=== PATIENT | male | born 1940 | race Caucasian/White ===

== ENCOUNTER 2018-07-09 23:14 | Inpatient (IN) | payer MEDICARE, OTHER ==
[~2018-07-09] VITALS: Ht 182.9 cm; Wt 64.9 kg
[2018-07-09] MEDS ORDERED: LEVO50TA8 PO (23:35)
[2018-07-09] MEDS ORDERED: POTA-82 PO (23:35)
[2018-07-09] MEDS ORDERED: piperacillin/tazo 3.375gm/50ml 50 ML IV ONE (23:45)
--- NOTE | 2018-07-09 23:57 | NUR ---
CALLED [facility] AND HE WAS NOT ABLE TO RETIME ZOSYN, SO HAD TO CANCEL IT AND REORDER IT.
--- NOTE | 2018-07-10 00:02 | NUR ---
NOTICED PT O2 SAT AT 90%, PLACED NC AT 2 L.
[2018-07-10 00:55] LABS: BASOPHILS % (AUTO) 0.3 % (0-1); EOSINOPHILS % (AUTO) 0.1 % (0-6); HEMATOCRIT 41.4 % (42.0-52.0); HEMOGLOBIN 12.9 g/dl (14.0-17.9); LYMPHOCYTES # (AUTO) 0.7 X10'3 (1.1-4.8); LYMPHOCYTES % (AUTO) 6.4 % (21-51); MEAN CORPUSCULAR HEMOGLOBIN 28.7 PG (27.0-31.0); MEAN CORPUSCULAR HGB CONC 31.1 g/dL (33.0-36.5); MEAN CORPUSCULAR VOLUME 92.3 FL (78-98); MEAN PLATELET VOLUME 9.5 FL (7.4-10.4); MONOCYTES # (AUTO) 0.4 X10'3 (0-0.9); MONOCYTES % (AUTO) 3.7 % (2-12); NEUTROPHILS # (AUTO) 10.3 X10'3 (1.8-7.7); NEUTROPHILS % (AUTO) 89.5 % (42-75); PLATELET COUNT 307 X10'3 (140-440); RED BLOOD COUNT 4.48 X10'6 (4.70-6.10); RED CELL DISTRIBUTION WIDTH 14.8 % (11.5-14.5); WHITE BLOOD COUNT 11.5 X10'3 (4.5-11.0)
[2018-07-10 01:12] LABS: ALANINE AMINOTRANSFERASE 14 U/L (12-78); ALBUMIN 1.6 G/DL (3.4-5.0); ALBUMIN/GLOBULIN RATIO 0.3 (1.1-1.5); ALKALINE PHOSPHATASE 72 IU/L (46-116); ANION GAP 10 (8-16); ASPARTATE AMINO TRANSFERASE 17 U/L (10-37); BILIRUBIN,TOTAL 0.3 MG/DL (0.1-1.0); BLOOD UREA NITROGEN 42 MG/DL (7-18); BUN/CREATININE RATIO 49.4 (5.4-32.0); CALCIUM 8.8 MG/DL (8.5-10.1); CHLORIDE 107 MMOL/L (99-107); CREATININE 0.85 MG/DL (0.60-1.10); GLUCOSE 63 MG/DL (70-104); MAGNESIUM 2.2 MG/DL (1.5-2.4); POTASSIUM 4.2 MMOL/L (3.5-5.1); SODIUM 146 MMOL/L (135-145); TOTAL CARBON DIOXIDE 29.4 MMOL/L (24-32); TOTAL PROTEIN 7.5 G/DL (6.4-8.2); TROPONIN I < 0.04 NG/ML (0.0-0.05); eGFR 87 ML/MIN
[2018-07-10] MEDS ORDERED: clindamycin 600mg/D5W 50ml 50 ML IV ONE (01:35)
[2018-07-10] MEDS ORDERED: piperacillin/tazo 3.375gm/50ml 50 ML IV SCH (01:40)
[2018-07-10] MEDS ORDERED: acetaminophen 325mg tablet PO PRN (02:10)
[2018-07-10] MEDS ORDERED: magnesium hydroxide 30ml (MOM) UD suspension PO PRN (02:10)
[2018-07-10] MEDS ORDERED: ondansetron/PF 4mg/2ml inj IV PRN (02:10)
[2018-07-10] MEDS ORDERED: mag hydrox/Alum hydrox/simeth 30ml oral suspension PO PRN (02:10)
[2018-07-10] MEDS: dextrose 5%-1/2 normal saline 1,000 ML IV SCH ×2 (02:29→12:59)
[2018-07-10 02:40] LABS: CLARITY,URINE CLEAR (Clear); COLOR,URINE YELLOW (Yellow); GLUCOSE, URINE NEGATIVE (Neg); KETONES,URINE NEGATIVE (Neg); LEUKOCYTE ESTERASE ,URINE NEGATIVE (Neg); NITRITES, URINE NEGATIVE (Neg); OCCULT BLOOD,URINE TRACE-LYSED (Neg); PROTEIN,URINE NEGATIVE (Neg); UA COLLECTION TYPE VOIDED; UROBILINOGEN,URINE 0.2 E.U/dL (0.2-1.0)
[2018-07-10 02:46] LABS: BACTERIA,URINE FEW /HPF (Neg); RBC,URINE 0-2 /HPF (0-2); SQUAMOUS EPITHELIAL CELL,UR FEW /LPF (FEW); WBC,URINE NONE SEEN /HPF (0-4)
[2018-07-10 03:45] VITALS: BP 121/55
--- NOTE | 2018-07-10 06:25 | NUR ---
Patient in room [facility]. I have received report from Isabella Lee RN and had the opportunity to ask questions and assume patient care.
--- NOTE | 2018-07-10 06:33 | NUR ---
Problems reprioritized. Patient report given, questions answered & plan of care reviewed with JENN Galindo. Addendum: 07/10/18 at 0633 by Heather Hedrick RN Amended: Links added.
[2018-07-10] MEDS: levoTHYROXINE 25mcg tablet PO SCH (07:54)
[2018-07-10 08:00] VITALS: BP 114/43
[2018-07-10] MEDS ORDERED: clindamycin 300mg/D5W 50mL 50 ML IV SCH (08:00)
[2018-07-10] MEDS ORDERED: magnesium 4gm in 100ml NS 100 ML IV PRN (09:20)
[2018-07-10] MEDS ORDERED: magnesium Cl slow-release 64mg tablet PO PRN (09:20)
[2018-07-10] MEDS ORDERED: potassium Cl 20 mEq SR tablet PO PRN ×2 (09:20)
[2018-07-10] MEDS ORDERED: potassium Cl 40MEQ/NS 500ml 500 ML IV PRN ×2 (09:20)
--- NOTE | 2018-07-10 10:43 | NUR ---
Dr. Matos in with patient. Patient's daughter Neela is in the room as well.
[2018-07-10] MEDS: vancomycin/NS 1 GM ADD-VANTAGE 250 ML X 1 DOSE IV SCH (10:55)
[2018-07-10 11:00] VITALS: BP 95/44
[2018-07-10] MEDS: piperacillin/tazo 3.375gm/50ml 50 ML IV SCH ×2 (12:54→17:13)
--- NOTE | 2018-07-10 15:32 | NUR ---
Malnutrition consult: Pt seen at bedside. Pt reports UBW of 120# with current documented wt of 97# taken in the ER this visit per pt. This is 19% wt loss in an unknown time frame. Pt very cachectic with visible fat and muscle wasting. Pt currently meets criteria for severe malnutrition, MD notified. Pt currently NPO. Pt states he is hungry and that he has some difficulty swallowing. Pt is agreeable to BSS with PERSONNEL DIRECTOR to determine appropriate texture modification with diet advancement. RD did not order ST eval at this time d/t patient's current NPO status, recommend ordering once diet advancement is medically indicated. Pt agreeable to strawberry or chocolate ONS once diet is advanced. Pt denies any food allergies. RD contact information provided. Will continue to follow. Recommendations: 1) BSS with PERSONNEL DIRECTOR for diet advancement to regular as medically indicated 2) ONS if pt passes BSS 3) Wt per rx Addendum: 07/10/18 at [address] Amended: Links added.
--- NOTE | 2018-07-10 18:08 | NUR ---
Patient in room [facility]. I have received report from JENN Galindo and had the opportunity to ask questions and assume patient care. Addendum: 07/10/18 at 1809 by Heather Hedrick RN Amended: Links added.
[2018-07-10 20:00] VITALS: BP 95/55
[2018-07-11] VITALS (14 sets, daily range): BP systolic 84–115; BP diastolic 37–56
[2018-07-11] MEDS: dextrose 5%-1/2 normal saline 1,000 ML IV SCH ×3 (00:51→18:10)
[2018-07-11] MEDS: piperacillin/tazo 3.375gm/50ml 50 ML IV SCH ×3 (03:08→17:33)
[2018-07-11 05:35] LABS: ALANINE AMINOTRANSFERASE 11 U/L (12-78); ALBUMIN 1.5 G/DL (3.4-5.0); ALBUMIN/GLOBULIN RATIO 0.3 (1.1-1.5); ALKALINE PHOSPHATASE 64 IU/L (46-116); ANION GAP 7 (8-16); ASPARTATE AMINO TRANSFERASE 16 U/L (10-37); BILIRUBIN,TOTAL 0.2 MG/DL (0.1-1.0); BLOOD UREA NITROGEN 20 MG/DL (7-18); BUN/CREATININE RATIO 23.8 (5.4-32.0); CALCIUM 8.6 MG/DL (8.5-10.1); CHLORIDE 108 MMOL/L (99-107); CREATININE 0.84 MG/DL (0.60-1.10); GLUCOSE 92 MG/DL (70-104); MAGNESIUM 1.8 MG/DL (1.5-2.4); POTASSIUM 3.5 MMOL/L (3.5-5.1); SODIUM 146 MMOL/L (135-145); TOTAL CARBON DIOXIDE 31.2 MMOL/L (24-32); TOTAL PROTEIN 6.8 G/DL (6.4-8.2); eGFR 88 ML/MIN
[2018-07-11 06:24] LABS: MEAN PLATELET VOLUME 9.5 FL (7.4-10.4); PLATELET COUNT 276 X10'3 (140-440)
[2018-07-11 06:25] LABS: HEMATOCRIT 38.1 % (42.0-52.0); HEMOGLOBIN 12.6 g/dl (14.0-17.9); MEAN CORPUSCULAR HEMOGLOBIN 29.9 PG (27.0-31.0); MEAN CORPUSCULAR VOLUME 90.5 FL (78-98); RED BLOOD COUNT 4.21 X10'6 (4.70-6.10); RED CELL DISTRIBUTION WIDTH 14.6 % (11.5-14.5); WHITE BLOOD COUNT 10.4 X10'3 (4.5-11.0)
--- NOTE | 2018-07-11 06:35 | NUR ---
Problems reprioritized. Patient report given, questions answered & plan of care reviewed with JENN Nunez.
--- NOTE | 2018-07-11 06:36 | NUR ---
Patient in room [facility]. I have received report from Isabella BARAJAS and had the opportunity to ask questions and assume patient care.
[2018-07-11 07:16] LABS: TOTAL CELLS COUNTED 100
[2018-07-11 07:17] LABS: ANISOCYTOSIS 2+; PLATELET ESTIMATE NORMAL
[2018-07-11] MEDS: levoTHYROXINE 25mcg tablet PO SCH (07:43)
[2018-07-11] MEDS: vancomycin/NS 1 GM ADD-VANTAGE 250 ML X 1 DOSE IV SCH (09:18)
[2018-07-11] MEDS ORDERED: LIDOcaine 1%/PF 5ML 10 MG/ML VIAL ONE (12:22)
[2018-07-11 14:28] LABS: GLUCOSE,BODY FLUID 7 MG/DL; TOTAL PROTEIN,BODY FLUID 5.2 G/DL
[2018-07-11 14:31] LABS: BFSOURCE RIGHT PLEURAL FLD
[2018-07-11 14:54] LABS: LDH,BODY FLUID 16576 U/L
--- NOTE | 2018-07-11 15:36 | NUR ---
patient was seen by DR Forrest, DR Horn, and DR Walter. Chest tube ordered and placed by DR Walter. Draining purrulent viscous drainage . patient appears more relieved as time progresses. 400mls drained at this time. Daughter at bedside.
[2018-07-11 16:02] LABS: LYMPHOCYTES,BODY FLUID 43 %; MONOCYTES,BODY FLUID 35 %; NEUTROPHILS,BODY FLUID 22 %
[2018-07-11 16:26] LABS: BFAPPEAR TURBID
[2018-07-11 16:27] LABS: BFVOLUME 60 ML
[2018-07-11 16:28] LABS: BF RBC COUNT 150 /CU MM; BF WBC COUNT 6100 /CU MM (0-1000); BFCOLOR GREEN
--- NOTE | 2018-07-11 18:34 | NUR ---
Problems reprioritized. Patient report given, questions answered & plan of care reviewed with Abril BARAJAS.
--- NOTE | 2018-07-11 18:44 | NUR ---
Patient in room [facility]. I have received report from Mayra BARAJAS and had the opportunity to ask questions and assume patient care with Genevieve BARAJAS and María BARAJAS.
--- NOTE | 2018-07-11 18:45 | NUR ---
Patient in room [facility]. I have received report from Mayra BARAJAS and had the opportunity to ask questions and assume patient care.
[2018-07-11] MEDS: lactobacillus rhamnosus 10,000 MMU CELLS/CAPSULE PO SCH (19:37)
[2018-07-11] MEDS ORDERED: ipratropium/albuterol 3ml nebule NEB PRN (21:20)
[2018-07-12] VITALS: BP 90/47
[2018-07-12] MEDS: dextrose 5%-1/2 normal saline 1,000 ML IV SCH ×2 (00:11→14:10)
[2018-07-12] MEDS: piperacillin/tazo 3.375gm/50ml 50 ML IV SCH ×3 (02:07→17:39)
[2018-07-12 06:14] LABS: BASOPHILS % (AUTO) 0.3 % (0-1); EOSINOPHILS # (AUTO) 0.1 X10'3 (0-0.9); EOSINOPHILS % (AUTO) 1.7 % (0-6); LYMPHOCYTES # (AUTO) 0.8 X10'3 (1.1-4.8); LYMPHOCYTES % (AUTO) 12.8 % (21-51); MEAN CORPUSCULAR HEMOGLOBIN 29.5 PG (27.0-31.0); MEAN CORPUSCULAR HGB CONC 32.3 g/dL (33.0-36.5); MEAN CORPUSCULAR VOLUME 91.1 FL (78-98); MEAN PLATELET VOLUME 9.4 FL (7.4-10.4); MONOCYTES # (AUTO) 0.4 X10'3 (0-0.9); MONOCYTES % (AUTO) 5.9 % (2-12); NEUTROPHILS # (AUTO) 4.9 X10'3 (1.8-7.7); NEUTROPHILS % (AUTO) 79.3 % (42-75); PLATELET COUNT 245 X10'3 (140-440); RED BLOOD COUNT 4.06 X10'6 (4.70-6.10); RED CELL DISTRIBUTION WIDTH 14.5 % (11.5-14.5); WHITE BLOOD COUNT 6.2 X10'3 (4.5-11.0)
[2018-07-12 06:16] LABS: ALANINE AMINOTRANSFERASE 11 U/L (12-78); ALBUMIN 1.4 G/DL (3.4-5.0); ALBUMIN/GLOBULIN RATIO 0.3 (1.1-1.5); ALKALINE PHOSPHATASE 59 IU/L (46-116); ANION GAP 5 (8-16); ASPARTATE AMINO TRANSFERASE 17 U/L (10-37); BILIRUBIN,TOTAL 0.2 MG/DL (0.1-1.0); BLOOD UREA NITROGEN 13 MG/DL (7-18); BUN/CREATININE RATIO 18.1 (5.4-32.0); CALCIUM 8.4 MG/DL (8.5-10.1); CHLORIDE 107 MMOL/L (99-107); CREATININE 0.72 MG/DL (0.60-1.10); GLUCOSE 87 MG/DL (70-104); MAGNESIUM 1.7 MG/DL (1.5-2.4); POTASSIUM 3.2 MMOL/L (3.5-5.1); SODIUM 144 MMOL/L (135-145); TOTAL CARBON DIOXIDE 32.2 MMOL/L (24-32); TOTAL PROTEIN 6.5 G/DL (6.4-8.2); eGFR > 90 ML/MIN
--- NOTE | 2018-07-12 06:27 | NUR ---
Gave report to Mayra BARAJAS pt is resting on 2L of O2 via NC in no apparent distress,
--- NOTE | 2018-07-12 06:28 | NUR ---
Problems reprioritized. Patient report given to Mayra BARAJAS, questions answered & plan of care reviewed with Genevieve BARAJAS and María BARAJAS.
--- NOTE | 2018-07-12 06:54 | NUR ---
Patient in room [facility]. I have received report from philomena seth and had the opportunity to ask questions and assume patient care.
[2018-07-12 07:00] VITALS: BP 97/47
[2018-07-12] MEDS: lactobacillus rhamnosus 10,000 MMU CELLS/CAPSULE PO SCH ×2 (08:06→19:29)
[2018-07-12] MEDS: levoTHYROXINE 25mcg tablet PO SCH (08:07)
[2018-07-12] MEDS ORDERED: alteplase 1 mg/ml 5ml syringe ICATH ONE (09:50)
[2018-07-12] MEDS ORDERED: vancomycin/NS 1 GM ADD-VANTAGE 250 ML X 1 DOSE IV SCH (10:00)
[2018-07-12 12:00] VITALS: BP 129/69
--- NOTE | 2018-07-12 12:30 | NUR ---
wrong B/P entered. B/P 89/45 Addendum: 07/12/18 at 1231 by Mayra Hopper RN Amended: Links added.
--- NOTE | 2018-07-12 15:13 | NUR ---
patient seen by Dr Walter. TPA injected into tube and clamped for 3 hrs. Unclamped at 1330hrs and draining still purrelent drainage.
--- NOTE | 2018-07-12 18:01 | NUR ---
Problems reprioritized. Patient report given, questions answered & plan of care reviewed with Isabella BARAJAS.
[2018-07-12 20:00] VITALS: BP 92/45
[2018-07-13] VITALS: BP 106/50
[2018-07-13] MEDS: dextrose 5%-1/2 normal saline 1,000 ML IV SCH ×3 (00:10→14:51)
[2018-07-13] MEDS: piperacillin/tazo 3.375gm/50ml 50 ML IV SCH ×3 (01:37→19:51)
--- NOTE | 2018-07-13 06:00 | NUR ---
Patient in room [facility]. I have received report from JENN Mason and had the opportunity to ask questions and assume patient care.
--- NOTE | 2018-07-13 06:37 | NUR ---
Problems reprioritized. Patient report given, questions answered & plan of care reviewed with JENN Renteria.
--- NOTE | 2018-07-13 06:57 | NUR ---
Patient in room [facility]. I have received report from Myra and had the opportunity to ask questions and assume patient care.
[2018-07-13 07:00] VITALS: BP 120/59
[2018-07-13] MEDS: levoTHYROXINE 25mcg tablet PO SCH (07:26)
[2018-07-13] MEDS: lactobacillus rhamnosus 10,000 MMU CELLS/CAPSULE PO SCH ×2 (07:26→19:53)
[2018-07-13 08:50] VITALS: BP 108/53
[2018-07-13] MEDS ORDERED: VANCOMYCIN LEVEL IV ONE (09:30)
[2018-07-13 10:32] LABS: BASOPHILS % (AUTO) 0.6 % (0-1); EOSINOPHILS # (AUTO) 0.1 X10'3 (0-0.9); EOSINOPHILS % (AUTO) 1.3 % (0-6); HEMATOCRIT 37.6 % (42.0-52.0); HEMOGLOBIN 11.9 g/dl (14.0-17.9); LYMPHOCYTES # (AUTO) 0.7 X10'3 (1.1-4.8); LYMPHOCYTES % (AUTO) 10.5 % (21-51); MEAN CORPUSCULAR HGB CONC 31.7 g/dL (33.0-36.5); MEAN CORPUSCULAR VOLUME 91.2 FL (78-98); MEAN PLATELET VOLUME 9.1 FL (7.4-10.4); MONOCYTES # (AUTO) 0.4 X10'3 (0-0.9); MONOCYTES % (AUTO) 6.9 % (2-12); NEUTROPHILS # (AUTO) 5.3 X10'3 (1.8-7.7); NEUTROPHILS % (AUTO) 80.7 % (42-75); PLATELET COUNT 231 X10'3 (140-440); RED BLOOD COUNT 4.12 X10'6 (4.70-6.10); RED CELL DISTRIBUTION WIDTH 14.8 % (11.5-14.5); WHITE BLOOD COUNT 6.5 X10'3 (4.5-11.0)
[2018-07-13 10:35] LABS: ALANINE AMINOTRANSFERASE 8 U/L (12-78); ALBUMIN 1.3 G/DL (3.4-5.0); ALBUMIN/GLOBULIN RATIO 0.3 (1.1-1.5); ALKALINE PHOSPHATASE 54 IU/L (46-116); ANION GAP 4 (8-16); ASPARTATE AMINO TRANSFERASE 16 U/L (10-37); BILIRUBIN,TOTAL 0.2 MG/DL (0.1-1.0); BLOOD UREA NITROGEN 9 MG/DL (7-18); BUN/CREATININE RATIO 11.8 (5.4-32.0); CALCIUM 7.7 MG/DL (8.5-10.1); CHLORIDE 104 MMOL/L (99-107); CREATININE 0.76 MG/DL (0.60-1.10); GLUCOSE 81 MG/DL (70-104); MAGNESIUM 1.4 MG/DL (1.5-2.4); POTASSIUM 3.1 MMOL/L (3.5-5.1); SODIUM 138 MMOL/L (135-145); TOTAL CARBON DIOXIDE 29.9 MMOL/L (24-32); TOTAL PROTEIN 6.3 G/DL (6.4-8.2); eGFR > 90 ML/MIN
--- NOTE | 2018-07-13 10:47 | NUR ---
Student documentation: I have reviewed and agree with all interventions, assessments performed and documented by [employer], school of nursing director.
[2018-07-13 10:50] VITALS: BP 111/54
--- NOTE | 2018-07-13 10:57 | NUR ---
Student Medication Administration: For this medication-pass time frame, all medication were reviewed, dispensed, administered and documented per hospital policy by [employer] nursing professor.
--- NOTE | 2018-07-13 11:02 | NUR ---
Attempted to take a temperature, patient was asleep, family wanted him to sleep and not be bothered.
[2018-07-13 11:08] VITALS: BP 111/54
--- NOTE | 2018-07-13 11:23 | NUR ---
Patient report given, questions answered & plan of care reviewed with Myra.
[2018-07-13] MEDS ORDERED: alteplase 1 mg/ml 5ml syringe ICATH ONE (11:50)
--- NOTE | 2018-07-13 11:53 | NUR ---
reassessment: Pt PO 25% avg mechanical soft meals. No BSS yet and pt would like since now PO; DOCUMENT IMPROVEMENT SPECIALIST consult ordered as well as Chocolate Glucerna TIDWM given pt agreeable on prior RD visit and currently out of stock on aaliyah lam; and dietary notified. RD [employer] for routine bowel care given LBM 07/08 w/ pt having nausea/constipation and no bowel care ordered. Will monitor for ONS acceptance and additional texture modification needs per DOCUMENT IMPROVEMENT SPECIALIST recs; currently tolerating liquids even though low PO. New labs pending today. Will continue to monitor. Recommendations: 1) BSS with DOCUMENT IMPROVEMENT SPECIALIST for diet advancement to regular as medically indicated 2) chocolate Glucerna TIDWM; change per DOCUMENT IMPROVEMENT SPECIALIST recs 3) Weekly wts Addendum: 07/13/18 at [address] Amended: Links added.
--- NOTE | 2018-07-13 12:18 | NUR ---
Patient in room [facility]. I have received report from JENN Renteria and had the opportunity to ask questions and assume patient care.
[2018-07-13] MEDS ORDERED: magnesium 4gm in 100ml NS 100 ML IV PRN (12:25)
[2018-07-13] MEDS ORDERED: potassium Cl 20 mEq SR tablet PO PRN (12:25)
[2018-07-13] MEDS ORDERED: magnesium Cl slow-release 64mg tablet PO PRN (12:25)
[2018-07-13] MEDS ORDERED: potassium Cl 40MEQ/NS 500ml 500 ML IV PRN (12:25)
[2018-07-13] MEDS: potassium Cl 20 mEq SR tablet PO PRN (14:41)
--- NOTE | 2018-07-13 18:58 | NUR ---
Problems reprioritized. Patient report given, questions answered & plan of care reviewed with Bonnie Nicole RN.
[2018-07-13 20:00] VITALS: BP 101/52
[2018-07-13] MEDS: potassium Cl 40MEQ/NS 500ml 500 ML IV PRN (20:24)
[2018-07-14] VITALS: BP 101/48
[2018-07-14] MEDS: piperacillin/tazo 3.375gm/50ml 50 ML IV SCH ×3 (02:23→19:19)
[2018-07-14 05:01] LABS: ALANINE AMINOTRANSFERASE 11 U/L (12-78); ALBUMIN 1.5 G/DL (3.4-5.0); ALBUMIN/GLOBULIN RATIO 0.3 (1.1-1.5); ALKALINE PHOSPHATASE 61 IU/L (46-116); ANION GAP 2 (8-16); ASPARTATE AMINO TRANSFERASE 16 U/L (10-37); BILIRUBIN,TOTAL 0.3 MG/DL (0.1-1.0); BLOOD UREA NITROGEN 8 MG/DL (7-18); BUN/CREATININE RATIO 10.7 (5.4-32.0); CALCIUM 7.7 MG/DL (8.5-10.1); CHLORIDE 104 MMOL/L (99-107); CREATININE 0.75 MG/DL (0.60-1.10); GLUCOSE 99 MG/DL (70-104); MAGNESIUM 2.1 MG/DL (1.5-2.4); POTASSIUM 3.6 MMOL/L (3.5-5.1); SODIUM 139 MMOL/L (135-145); TOTAL CARBON DIOXIDE 33.1 MMOL/L (24-32); TOTAL PROTEIN 6.8 G/DL (6.4-8.2); eGFR > 90 ML/MIN
[2018-07-14 05:09] LABS: HEMOGLOBIN 13.4 g/dl (14.0-17.9); MEAN CORPUSCULAR HGB CONC 32.6 g/dL (33.0-36.5); MEAN PLATELET VOLUME 9.4 FL (7.4-10.4)
[2018-07-14 05:11] LABS: HEMATOCRIT 41.1 % (42.0-52.0); MEAN CORPUSCULAR HEMOGLOBIN 29.5 PG (27.0-31.0); MEAN CORPUSCULAR VOLUME 90.5 FL (78-98); PLATELET COUNT 257 X10'3 (140-440); RED BLOOD COUNT 4.54 X10'6 (4.70-6.10); RED CELL DISTRIBUTION WIDTH 14.8 % (11.5-14.5)
[2018-07-14] MEDS: dextrose 5%-1/2 normal saline 1,000 ML IV SCH ×2 (06:10→14:52)
[2018-07-14 06:27] LABS: PLATELET ESTIMATE NORMAL; TOTAL CELLS COUNTED 100
--- NOTE | 2018-07-14 06:30 | NUR ---
Patient in room [facility]. I have received report from Bonnie Nicole RN and had the opportunity to ask questions and assume patient care.
[2018-07-14 06:58] VITALS: BP 106/54
[2018-07-14] MEDS: levoTHYROXINE 25mcg tablet PO SCH (07:55)
[2018-07-14] MEDS: lactobacillus rhamnosus 10,000 MMU CELLS/CAPSULE PO SCH ×2 (07:55→20:01)
[2018-07-14 11:00] VITALS: BP 100/57
[2018-07-14] MEDS ORDERED: alteplase 1 mg/ml 5ml syringe ICATH ONE (11:10)
[2018-07-14] MEDS ORDERED: ALTEPLASE IV ONE (11:15)
[2018-07-14] MEDS ORDERED: NORMAL SALINE IV ONE (11:15)
--- NOTE | 2018-07-14 18:30 | NUR ---
Problems reprioritized. Patient report given, questions answered & plan of care reviewed with Bonnie Nicole RN.
--- NOTE | 2018-07-14 18:35 | NUR ---
Patient in room [facility]. I have received report from SURYA BARAJAS and had the opportunity to ask questions and assume patient care.
--- NOTE | 2018-07-14 18:57 | NUR ---
PAGED DR. BLACKMAN AND WAS INFORMED ABOUT PATIENT VOIDED ONLY 150 ML FOR THE WHOLE SHIFT, WITH ORDER TO STRAIGHT CATH.
[2018-07-14 20:00] VITALS: BP 94/47
[2018-07-14] MEDS ORDERED: docusate sod 100mg capsule PO SCH (20:00)
[2018-07-14] MEDS: docusate sodium 100mg/10ml UD cup PO SCH (20:01)
--- NOTE | 2018-07-14 20:35 | NUR ---
TRIED TO STRAIGHT CATH PATIENT BUT FAILED SO ASKED ANOTHER NURSE ABI BARAJAS TO DO IT AND STILL FIND SOMETHING OBSTRUCTING IT. CALLED DR. CHAPPELL WITH ORDER MAY USE CAUDE CATHETER AND LEAVE IT IN UNTIL FURTHER EVALUATION.
[2018-07-15] VITALS: BP 111/70
[2018-07-15] MEDS: piperacillin/tazo 3.375gm/50ml 50 ML IV SCH ×3 (02:51→18:50)
[2018-07-15] MEDS: dextrose 5%-1/2 normal saline 1,000 ML IV SCH ×3 (04:17→22:10)
[2018-07-15 04:41] LABS: BASOPHILS % (AUTO) 0.2 % (0-1); EOSINOPHILS # (AUTO) 0.1 X10'3 (0-0.9); EOSINOPHILS % (AUTO) 0.6 % (0-6); HEMATOCRIT 35.7 % (42.0-52.0); HEMOGLOBIN 11.9 g/dl (14.0-17.9); LYMPHOCYTES # (AUTO) 0.7 X10'3 (1.1-4.8); LYMPHOCYTES % (AUTO) 7.5 % (21-51); MEAN CORPUSCULAR HEMOGLOBIN 29.7 PG (27.0-31.0); MEAN CORPUSCULAR HGB CONC 33.3 g/dL (33.0-36.5); MONOCYTES # (AUTO) 0.3 X10'3 (0-0.9); MONOCYTES % (AUTO) 3.4 % (2-12); NEUTROPHILS # (AUTO) 8.8 X10'3 (1.8-7.7); NEUTROPHILS % (AUTO) 88.3 % (42-75); PLATELET COUNT 223 X10'3 (140-440); RED BLOOD COUNT 4.02 X10'6 (4.70-6.10); RED CELL DISTRIBUTION WIDTH 14.6 % (11.5-14.5); WHITE BLOOD COUNT 9.9 X10'3 (4.5-11.0)
[2018-07-15 04:48] LABS: ALANINE AMINOTRANSFERASE 9 U/L (12-78); ALBUMIN 1.2 G/DL (3.4-5.0); ALBUMIN/GLOBULIN RATIO 0.3 (1.1-1.5); ALKALINE PHOSPHATASE 56 IU/L (46-116); ANION GAP 2 (8-16); ASPARTATE AMINO TRANSFERASE 14 U/L (10-37); BILIRUBIN,TOTAL 0.3 MG/DL (0.1-1.0); BLOOD UREA NITROGEN 11 MG/DL (7-18); BUN/CREATININE RATIO 16.2 (5.4-32.0); CALCIUM 7.6 MG/DL (8.5-10.1); CHLORIDE 104 MMOL/L (99-107); CREATININE 0.68 MG/DL (0.60-1.10); GLUCOSE 90 MG/DL (70-104); MAGNESIUM 1.7 MG/DL (1.5-2.4); POTASSIUM 3.4 MMOL/L (3.5-5.1); SODIUM 137 MMOL/L (135-145); TOTAL CARBON DIOXIDE 31.5 MMOL/L (24-32); eGFR > 90 ML/MIN
--- NOTE | 2018-07-15 06:00 | NUR ---
Patient in room [facility]. I have received report from frias rn and had the opportunity to ask questions and assume patient care.
--- NOTE | 2018-07-15 06:30 | NUR ---
Problems reprioritized. Patient report given, questions answered & plan of care reviewed with HIRAL BARAJAS.
[2018-07-15 07:19] VITALS: BP 109/50
[2018-07-15] MEDS: docusate sodium 100mg/10ml UD cup PO SCH ×2 (07:32→21:34)
[2018-07-15] MEDS: levoTHYROXINE 25mcg tablet PO SCH (07:32)
[2018-07-15] MEDS: lactobacillus rhamnosus 10,000 MMU CELLS/CAPSULE PO SCH ×2 (07:32→21:34)
[2018-07-15] MEDS: potassium Cl 40MEQ/NS 500ml 500 ML IV PRN (08:07)
--- NOTE | 2018-07-15 09:30 | NUR ---
pt had potassium iv hanging per protocol. it was irritating his skin. d/c and switched to po protocol. melted potassium
--- NOTE | 2018-07-15 09:48 | NUR ---
TF consult: Pt corpak placed w/ NGTF to start today per POA wishes in order to provide optimal nutrition w/ severe emaciation and low PO. Recs below for pt needs. LBM 07/10; receiving colace BID since yesterday. Will monitor for tube feed tolerance given severe malnutrition and high risk for refeeding syndrome. Recommendations: 1) NGTF using Jevity at 70ml/hr goal; to provide 1680ml fluid, 1361ml free water, 2016kcals, and 93g protein. Initiate at 20ml/hr and advance 20ml Q8 to goal as tolerated. 2) water flush 200ml Q4 3) prealbumin Q /, daily wts 4) BSS with POTATO SEED CUTTER for diet advancement to regular as medically indicated 5) monitor for signs of refeeding w/ severe malnutrition 6) routine bowel care Addendum: 07/15/18 at [address] Amended: Links added.
--- NOTE | 2018-07-15 10:41 | NUR ---
Corkpak placed in left nare to 60 peggy on tubing. Secured with tape. Ausculated air bolus. X-ray will be coming to check placement.
[2018-07-15 12:30] VITALS: BP 105/48
[2018-07-15] MEDS: NUT.TX.GLUC.INTOLER,LAC-FR,SOY (GLUCERNA) 237 ML PO SCH ×2 (13:00→18:00)
[2018-07-15 15:30] VITALS: BP 88/40
[2018-07-15 17:20] VITALS: BP 103/56
[2018-07-15] MEDS: potassium Cl 20 mEq SR tablet PO PRN (17:55)
--- NOTE | 2018-07-15 18:11 | NUR ---
Problems reprioritized. Patient report given, questions answered & plan of care reviewed with BYRON BARAJAS.
--- NOTE | 2018-07-15 18:30 | NUR ---
Patient in room [facility]. I have received report from JENN Pinto and had the opportunity to ask questions and assume patient care. Addendum: 07/15/18 at 1926 by Kateryna Tatum RN Amended: Links added.
[2018-07-15 19:30] VITALS: BP 105/72
[2018-07-16] VITALS: BP 120/73
[2018-07-16] MEDS: piperacillin/tazo 3.375gm/50ml 50 ML IV SCH ×3 (03:07→17:50)
[2018-07-16] MEDS: dextrose 5%-1/2 normal saline 1,000 ML IV SCH ×2 (03:07→12:41)
--- NOTE | 2018-07-16 03:59 | NUR ---
unable to get weight, bed needs to be zeroed out. pt refuses to try to stand at bedside for weight tonight. Addendum: 07/16/18 at 0400 by Kateryna Tatum RN Amended: Links added.
[2018-07-16 04:53] LABS: PREALBUMIN 4.7 MG/DL (19-36)
[2018-07-16 04:55] LABS: POTASSIUM 2.6 MMOL/L (3.5-5.1)
[2018-07-16] MEDS ORDERED: potassium Cl oral solution 20 MEQ/15 ML PO PRN ×3 (05:14→17:40)
[2018-07-16] MEDS: potassium Cl oral solution 20 MEQ/15 ML PO PRN ×2 (05:19→09:47)
--- NOTE | 2018-07-16 06:38 | NUR ---
Problems reprioritized. Patient report given, questions answered & plan of care reviewed with JENN Nunez. Addendum: 07/16/18 at 0638 by Kateryna Tatum RN Amended: Links added.
[2018-07-16 07:00] VITALS: BP 97/41
--- NOTE | 2018-07-16 07:15 | NUR ---
Patient in room [facility]. I have received report from Vicenta BARAJAS and had the opportunity to ask questions and assume patient care.
[2018-07-16] MEDS: levoTHYROXINE 25mcg tablet PO SCH (07:46)
[2018-07-16] MEDS: docusate sodium 100mg/10ml UD cup PO SCH ×2 (07:47→20:00)
[2018-07-16] MEDS: lactobacillus rhamnosus 10,000 MMU CELLS/CAPSULE PO SCH ×2 (07:47→20:00)
[2018-07-16] MEDS: NUT.TX.GLUC.INTOLER,LAC-FR,SOY (GLUCERNA) 237 ML PO SCH ×3 (08:00→18:00)
[2018-07-16 11:00] VITALS: BP 110/50
--- NOTE | 2018-07-16 11:45 | NUR ---
Patient in room [facility]. I have received report from SN Blanquita and had the opportunity to ask questions and assume patient care.
[2018-07-16 12:45] VITALS: BP 94/47
--- NOTE | 2018-07-16 13:30 | NUR ---
Jevity rate increased to 70mls/hr. patient is at goal rate. tolerating well, will continue to monitor.
[2018-07-16] MEDS ORDERED: magnesium 4gm in 100ml NS 100 ML IV PRN (17:40)
[2018-07-16] MEDS ORDERED: potassium Cl 40MEQ/NS 500ml 500 ML IV PRN ×2 (17:40)
[2018-07-16] MEDS ORDERED: magnesium Cl slow-release 64mg tablet PO PRN (17:40)
[2018-07-16 18:00] VITALS: BP 98/42
--- NOTE | 2018-07-16 18:23 | NUR ---
Problems reprioritized. Patient report given, questions answered & plan of care reviewed with selam BARAJAS.
--- NOTE | 2018-07-16 21:44 | NUR ---
Patient in room [facility]. I have received report from Mayra BARAJAS and had the opportunity to ask questions and assume patient care. Addendum: 07/16/18 at 2145 by John Lara RN incorrect time. correct time is 1830
[2018-07-17] VITALS: BP 127/48
[2018-07-17] MEDS: dextrose 5%-1/2 normal saline 1,000 ML IV SCH ×3 (01:03→19:56)
[2018-07-17] MEDS: piperacillin/tazo 3.375gm/50ml 50 ML IV SCH ×3 (01:03→18:21)
[2018-07-17 05:22] LABS: BASOPHILS % (AUTO) 0.4 % (0-1); EOSINOPHILS # (AUTO) 0.1 X10'3 (0-0.9); EOSINOPHILS % (AUTO) 0.8 % (0-6); HEMATOCRIT 35.5 % (42.0-52.0); HEMOGLOBIN 11.5 g/dl (14.0-17.9); LYMPHOCYTES # (AUTO) 0.6 X10'3 (1.1-4.8); LYMPHOCYTES % (AUTO) 5.5 % (21-51); MEAN CORPUSCULAR HEMOGLOBIN 28.7 PG (27.0-31.0); MEAN CORPUSCULAR HGB CONC 32.5 g/dL (33.0-36.5); MEAN CORPUSCULAR VOLUME 88.4 FL (78-98); MEAN PLATELET VOLUME 9.1 FL (7.4-10.4); MONOCYTES # (AUTO) 0.3 X10'3 (0-0.9); NEUTROPHILS # (AUTO) 9.3 X10'3 (1.8-7.7); NEUTROPHILS % (AUTO) 90.3 % (42-75); PLATELET COUNT 221 X10'3 (140-440); RED BLOOD COUNT 4.01 X10'6 (4.70-6.10); RED CELL DISTRIBUTION WIDTH 14.9 % (11.5-14.5); WHITE BLOOD COUNT 10.4 X10'3 (4.5-11.0)
[2018-07-17 05:40] LABS: ALANINE AMINOTRANSFERASE 9 U/L (12-78); ALBUMIN 1.1 G/DL (3.4-5.0); ALBUMIN/GLOBULIN RATIO 0.2 (1.1-1.5); ALKALINE PHOSPHATASE 57 IU/L (46-116); ANION GAP 1 (8-16); ASPARTATE AMINO TRANSFERASE 13 U/L (10-37); BILIRUBIN,TOTAL 0.2 MG/DL (0.1-1.0); BLOOD UREA NITROGEN 10 MG/DL (7-18); BUN/CREATININE RATIO 16.7 (5.4-32.0); CALCIUM 7.4 MG/DL (8.5-10.1); CHLORIDE 100 MMOL/L (99-107); GLUCOSE 114 MG/DL (70-104); MAGNESIUM 1.4 MG/DL (1.5-2.4); POTASSIUM 3.8 MMOL/L (3.5-5.1); SODIUM 134 MMOL/L (135-145); TOTAL CARBON DIOXIDE 33.5 MMOL/L (24-32); TOTAL PROTEIN 5.8 G/DL (6.4-8.2); eGFR > 90 ML/MIN
--- NOTE | 2018-07-17 06:30 | NUR ---
Problems reprioritized. Patient report given, questions answered & plan of care reviewed with Mayra BARAJAS.
[2018-07-17 06:46] VITALS: BP 110/110
[2018-07-17] MEDS: docusate sodium 100mg/10ml UD cup PO SCH ×2 (07:26→19:45)
[2018-07-17] MEDS: levoTHYROXINE 25mcg tablet PO SCH (07:26)
[2018-07-17] MEDS: lactobacillus rhamnosus 10,000 MMU CELLS/CAPSULE PO SCH ×2 (07:26→19:45)
[2018-07-17] MEDS: NUT.TX.GLUC.INTOLER,LAC-FR,SOY (GLUCERNA) 237 ML PO SCH ×3 (08:00→18:00)
[2018-07-17 11:19] VITALS: BP 132/57
--- NOTE | 2018-07-17 14:15 | NUR ---
Reassessment: Pt continues with TF at goal rate and tolerating with low residuals 0-25 mL. Pt documented to be refusing meals however pt with no active PO diet order and receiving TF for sole source of nutrition. Acute on chronic respiratory failure improving per MD notes. Pt pending possible removal of chest tube with placement of Elloesser Flap per MD notes. LBM 07/10, pt with routine Colace started on 07/14 and MoM PRN not yet given. Pt currently with an active NPO for OR diet order. Will continue to follow and monitor need for additional bowel care. Recommendations: 1) NGTF using Jevity at 70ml/hr goal; to provide 1680ml fluid, 1361ml free water, 2016kcals, and 93g protein. Initiate at 20ml/hr and advance 20ml Q8 to goal as tolerated. 2) water flush 200ml Q4; monitor Na and need for change in fluid flushes 3) prealbumin Q M/, daily wts 4) BSS with FIELD PARTY MANAGER for diet advancement to regular as medically indicated 5) monitor for signs of refeeding w/ severe malnutrition 6) routine bowel care Addendum: 07/17/18 at [address] Amended: Links added.
[2018-07-17 18:00] VITALS: BP 108/51
--- NOTE | 2018-07-17 18:30 | NUR ---
Patient in room [facility]. I have received report from Mayra BARAJAS and had the opportunity to ask questions and assume patient care.
[2018-07-17 21:59] VITALS: BP_SYST 108; BP_DIAS 44; BP_DIAS 51
[2018-07-18] VITALS (20 sets, daily range): BP systolic 104–156; BP diastolic 38–65
--- NOTE | 2018-07-18 00:32 | NUR ---
Upon returning from lunch, pt cor-pack tubing found on table, intact. When asked if pt took it out, pt pointed and RN and stated "It was coming out today!". Patient is NPO at this time as he is having a procedure in the AM. Pt appears in no physical distress.
[2018-07-18] MEDS: piperacillin/tazo 3.375gm/50ml 50 ML IV SCH ×3 (01:43→20:04)
[2018-07-18] MEDS: dextrose 5%-1/2 normal saline 1,000 ML IV SCH (03:44)
[2018-07-18 05:39] LABS: ALANINE AMINOTRANSFERASE 10 U/L (12-78); ALBUMIN 1.1 G/DL (3.4-5.0); ALBUMIN/GLOBULIN RATIO 0.2 (1.1-1.5); ALKALINE PHOSPHATASE 54 IU/L (46-116); ANION GAP 0 (8-16); ASPARTATE AMINO TRANSFERASE 16 U/L (10-37); BILIRUBIN,TOTAL 0.2 MG/DL (0.1-1.0); BLOOD UREA NITROGEN 6 MG/DL (7-18); BUN/CREATININE RATIO 11.3 (5.4-32.0); CALCIUM 7.4 MG/DL (8.5-10.1); CHLORIDE 98 MMOL/L (99-107); CREATININE 0.53 MG/DL (0.60-1.10); GLUCOSE 92 MG/DL (70-104); MAGNESIUM 1.7 MG/DL (1.5-2.4); POTASSIUM 3.7 MMOL/L (3.5-5.1); SODIUM 133 MMOL/L (135-145); TOTAL CARBON DIOXIDE 35.1 MMOL/L (24-32); TOTAL PROTEIN 5.8 G/DL (6.4-8.2); eGFR > 90 ML/MIN
[2018-07-18 05:44] LABS: BASOPHILS % (AUTO) 0.2 % (0-1); EOSINOPHILS # (AUTO) 0.1 X10'3 (0-0.9); HEMOGLOBIN 11.5 g/dl (14.0-17.9); LYMPHOCYTES # (AUTO) 0.5 X10'3 (1.1-4.8); LYMPHOCYTES % (AUTO) 5.5 % (21-51); MEAN CORPUSCULAR HGB CONC 32.8 g/dL (33.0-36.5); MEAN CORPUSCULAR VOLUME 88.3 FL (78-98); MEAN PLATELET VOLUME 8.7 FL (7.4-10.4); MONOCYTES # (AUTO) 0.4 X10'3 (0-0.9); MONOCYTES % (AUTO) 4.3 % (2-12); NEUTROPHILS # (AUTO) 7.5 X10'3 (1.8-7.7); PLATELET COUNT 215 X10'3 (140-440); RED BLOOD COUNT 3.96 X10'6 (4.70-6.10); RED CELL DISTRIBUTION WIDTH 14.8 % (11.5-14.5); WHITE BLOOD COUNT 8.4 X10'3 (4.5-11.0)
--- NOTE | 2018-07-18 06:55 | NUR ---
Problems reprioritized. Patient report given, questions answered & plan of care reviewed with Purvi and Benita.
[2018-07-18] MEDS: levoTHYROXINE 25mcg tablet PO SCH (07:00)
[2018-07-18] MEDS: docusate sodium 100mg/10ml UD cup PO SCH ×2 (07:15→20:00)
[2018-07-18] MEDS: lactobacillus rhamnosus 10,000 MMU CELLS/CAPSULE PO SCH ×2 (07:15→20:00)
[2018-07-18] MEDS: NUT.TX.GLUC.INTOLER,LAC-FR,SOY (GLUCERNA) 237 ML PO SCH ×3 (08:00→18:00)
[2018-07-18] MEDS ORDERED: sevoflurane 250ml liquid IH ONE (14:37)
[2018-07-18] MEDS ORDERED: propofol 10mg/ml 20ml vial IV ONE (14:37)
[2018-07-18] MEDS ORDERED: fentaNYL /PF 50mcg/ml 5ml ampule ONE (14:39)
[2018-07-18] MEDS ORDERED: gentamicin 40 MG/1 ML inj ONE ×2 (15:21→15:26)
[2018-07-18] MEDS ORDERED: clindamycin phosphate 150mg/ml inj. ONE ×2 (15:21→15:26)
[2018-07-18] MEDS ORDERED: ceFAZolin 1000mg inj ONE (15:25)
--- NOTE | 2018-07-18 15:54 | NUR ---
pT LEFT FOR SURGERY AT 1330, REPORT GIVEN TO DONALD IN ICU. ALL QUESTIONS ANSWERED, DAUGHTER TOOK BELONGINGS FROM ROOM.
--- NOTE | 2018-07-18 16:18 | NUR ---
Received from OR via ,BED accompanied by Anesthesiologist DR RIOS and report given by Anesthesiologist. PT SEDATED, BAGGED BY DR RIOS, RT HERE TO ATTACH PT TO VENT, PT W/GAUZE DRSG COVERING RIGHT MID CHEST/LUNG CDI, HIGGINS CATHETER TO GRAVITY DRAINAGE, CXR OBTAINED, DR RIOS AND DR LITTLEJOHN HERE, RESTRAINTS APPLIED, ABG DRAWN, DIPRIVAN STARTED PT WAKING UP, RESTLESS. Addendum: 07/18/18 at 1735 by Chandrika Clark RN Amended: Links added.
[2018-07-18] MEDS ORDERED: ringers solution, lacted 1,000 ML IV SCH (16:28)
[2018-07-18] MEDS ORDERED: CADD PCA waste documentation MC PRN (16:30)
[2018-07-18] MEDS ORDERED: ondansetron/PF 4mg/2ml inj IV PRN ×2 (16:30)
[2018-07-18] MEDS ORDERED: HYDROcodone/acetaminophen 10/325mg tab PO PRN ×2 (16:30)
[2018-07-18] MEDS ORDERED: naloxone 0.4 mg/ml inj IV PRN (16:30)
[2018-07-18] MEDS ORDERED: metoclopramide 5 mg/ml inj IV PRN (16:30)
[2018-07-18] MEDS ORDERED: fentaNYL/PF 50MCG/1 ML 2ML syringe IV PRN (16:30)
[2018-07-18] MEDS ORDERED: midazolam 100mg in NS 100ml 100 ML IV PRN (16:40)
[2018-07-18] MEDS ORDERED: propofol 1000mg/100ml bottle 100 ML IV PRN (16:47)
[2018-07-18 16:51] LABS: ABG BASE EXCESS 7.5 mmol/L (-2.0-3.0); ABG HCO3 33.9 mmol/L (22.0-26.0); ABG OXYGEN SATURATION 99.5 % (95-98); ABG PCO2 (T) 56.9 mmHg (35.0-48.0); ABG PH (T) 7.393 (7.350-7.450); ABG PO2 (T) 322.8 mmHg (83-108); FCOHb 0.3 % (0.5-1.5); FMetHb 0.2 % (0.3-1.12); MINUTE VOLUME 6 L/min; PEEP 5 cm H2O; RESPIRATORY RATE 14 b/min; RESPIRATORY RATE (OBSERVED) 14 b/min; TIDAL VOLUME 400 mL; TOTAL HEMOGLOBIN 11.1 G/dl (14.0-18.0)
[2018-07-18] MEDS ORDERED: rocuronium 10mg/ml inj IV ONE (16:52)
[2018-07-18] MEDS ORDERED: LIDOcaine 2% (20mg/ml) 5ml vial ONE (16:52)
[2018-07-18] MEDS ORDERED: ePHEDrine 50MG/ML INJ. ONE (16:52)
[2018-07-18] MEDS ORDERED: etomidate 2mg/ml inj. ONE (16:52)
[2018-07-18] MEDS ORDERED: propofol 1000mg/100ml bottle 100 ML IV ONE (16:59)
[2018-07-18] MEDS: morphine 4 MG/ML inj SYRINge IV PRN ×2 (17:42→17:47)
--- NOTE | 2018-07-18 17:58 | NUR ---
PT WAS RECOVERED IN ICU ROOM 2040, PT APPEARS COMFORTABLE AFTER RECEIVING MORPHINE FOR PAIN, REMAINS SEDATED ON VENT. RECEIVING RN PRESENT, REPORT GIVEN, PTS DAUGHTER IN TO SEE PT. Addendum: 07/18/18 at 1812 by Chandrika Clark RN Amended: Links added.
--- NOTE | 2018-07-18 17:58 | NUR ---
Patient recovered by Chandrika BARAJAS in the ICU; report received at the bedside. Patient sedated on Diprivan, blood pressure and other vital signs stable. ART line intact; zeroed/transduced. Lungs coarse; ventilator settings at SIMV/VC. Dressing site CDI; some redness noted on right flank; marked by prior RN. Dr. Su at bedside stating to "Reinforce the dressing if soiled." Dr. Corrigan reports patient to be a difficult airway; will likely try to extubate in the AM.
[2018-07-18] MEDS: potassium Cl 20mEq in D5-NS 1,000 ML IV SCH (18:00)
[2018-07-18] MEDS ORDERED: FENTANYL-0.9 % NACL/PF 100 ML IV PRN (18:12)
--- NOTE | 2018-07-18 18:25 | NUR ---
Problems reprioritized. Patient report given, questions answered & plan of care reviewed with Jay BARAJAS.
[2018-07-18] MEDS: heparin, porcine 5000 units/ml vial SQ SCH (20:05)
[2018-07-18] MEDS ORDERED: dextrose 50%-water 50ml dispensing syringe IV ONE (21:57)
[2018-07-18] MEDS ORDERED: NORepinephrine 8mg/ 250ml NS 250 ML IV ONE (23:39)
[2018-07-19] VITALS (24 sets, daily range): BP systolic 91–155; BP diastolic 40–84
[2018-07-19] MEDS ORDERED: NORepinephrine 8mg/ 250ml NS 250 ML IV SCH (00:25)
--- NOTE | 2018-07-19 00:36 | NUR ---
Spoke with Dr. Corrigan regarding patient's low BP. He gave a verbal order for Levophed and instructed me to go ahead and use a peripheral IV. There is no central line.
[2018-07-19] MEDS: piperacillin/tazo 3.375gm/50ml 50 ML IV SCH ×3 (01:52→17:33)
[2018-07-19] MEDS: albuterol 2.5 MG/3 ML nebule NEB PRN (03:00)
[2018-07-19 03:01] LABS: ALANINE AMINOTRANSFERASE 8 U/L (12-78); ALBUMIN 1.2 G/DL (3.4-5.0); ALBUMIN/GLOBULIN RATIO 0.3 (1.1-1.5); ALKALINE PHOSPHATASE 50 IU/L (46-116); ANION GAP 1 (8-16); ASPARTATE AMINO TRANSFERASE 14 U/L (10-37); BILIRUBIN,TOTAL 0.3 MG/DL (0.1-1.0); BLOOD UREA NITROGEN 7 MG/DL (7-18); BUN/CREATININE RATIO 15.9 (5.4-32.0); CALCIUM 7.8 MG/DL (8.5-10.1); CHLORIDE 99 MMOL/L (99-107); CREATININE 0.44 MG/DL (0.60-1.10); GLUCOSE 83 MG/DL (70-104); MAGNESIUM 1.6 MG/DL (1.5-2.4); POTASSIUM 3.4 MMOL/L (3.5-5.1); SODIUM 135 MMOL/L (135-145); TOTAL CARBON DIOXIDE 34.6 MMOL/L (24-32); TOTAL PROTEIN 5.4 G/DL (6.4-8.2); eGFR > 90 ML/MIN
[2018-07-19 03:03] LABS: BASOPHILS % (AUTO) 0.3 % (0-1); EOSINOPHILS # (AUTO) 0.1 X10'3 (0-0.9); EOSINOPHILS % (AUTO) 1.1 % (0-6); HEMATOCRIT 30.5 % (42.0-52.0); HEMOGLOBIN 10.2 g/dl (14.0-17.9); LYMPHOCYTES # (AUTO) 0.6 X10'3 (1.1-4.8); LYMPHOCYTES % (AUTO) 6.2 % (21-51); MEAN CORPUSCULAR HEMOGLOBIN 29.3 PG (27.0-31.0); MEAN CORPUSCULAR HGB CONC 33.4 g/dL (33.0-36.5); MEAN CORPUSCULAR VOLUME 87.8 FL (78-98); MEAN PLATELET VOLUME 8.8 FL (7.4-10.4); MONOCYTES # (AUTO) 0.4 X10'3 (0-0.9); NEUTROPHILS # (AUTO) 8.3 X10'3 (1.8-7.7); NEUTROPHILS % (AUTO) 88.4 % (42-75); PLATELET COUNT 240 X10'3 (140-440); RED BLOOD COUNT 3.47 X10'6 (4.70-6.10); RED CELL DISTRIBUTION WIDTH 14.7 % (11.5-14.5); WHITE BLOOD COUNT 9.4 X10'3 (4.5-11.0)
--- NOTE | 2018-07-19 03:25 | NUR ---
DR. Su aware of patient's need for levophed, and running through a PIV. Flotrac set up as requested by Dr. Su. Instructed to give albumin if SVV > 12, currently SVV is 8.
[2018-07-19 04:26] LABS: ABG BASE EXCESS 7.9 mmol/L (-2.0-3.0); ABG HCO3 33.6 mmol/L (22.0-26.0); ABG OXYGEN SATURATION 94.3 % (95-98); ABG PCO2 (T) 52.3 mmHg (35.0-48.0); ABG PH (T) 7.425 (7.350-7.450); ABG PO2 (T) 66.9 mmHg (83-108); FCOHb 0.2 % (0.5-1.5); FMetHb 0.1 % (0.3-1.12); MINUTE VOLUME 6 L/min; PATIENT TEMPERATURE 36.9; PEEP 5 cm H2O; RESPIRATORY RATE 14 b/min; RESPIRATORY RATE (OBSERVED) 16 b/min; TIDAL VOLUME 400 mL; TOTAL HEMOGLOBIN 11.1 G/dl (14.0-18.0)
--- NOTE | 2018-07-19 05:57 | NUR ---
Arthur Cardoza APPLICATION INTEGRATION ARCHITECT of levophed running through PIV at 10mcg/min. No signs of infiltration or phlebitis.
--- NOTE | 2018-07-19 06:37 | NUR ---
Patient in room ICU 2040. I have received report from Jay BARAJAS and had the opportunity to ask questions and assume patient care. Addendum: 07/19/18 at 0638 by Nehal Joyner RN Amended: Links added.
[2018-07-19] MEDS: potassium Cl 20mEq in D5-NS 1,000 ML IV SCH ×2 (06:48→17:26)
[2018-07-19] MEDS: levoTHYROXINE 25mcg tablet PO SCH (07:00)
[2018-07-19] MEDS: heparin, porcine 5000 units/ml vial SQ SCH ×2 (07:18→19:51)
[2018-07-19] MEDS: docusate sodium 100mg/10ml UD cup PO SCH ×2 (07:22→19:51)
[2018-07-19] MEDS: lactobacillus rhamnosus 10,000 MMU CELLS/CAPSULE PO SCH ×2 (07:22→19:51)
[2018-07-19] MEDS: NUT.TX.GLUC.INTOLER,LAC-FR,SOY (GLUCERNA) 237 ML PO SCH ×3 (08:00→18:00)
--- NOTE | 2018-07-19 09:06 | NUR ---
Dr. Barney to see pt. Stated he wants weaning parameters done and sedation to remain off. Stated to wean Levo.
--- NOTE | 2018-07-19 09:36 | NUR ---
Pt's daughter at bedside. Weaning parameters done.
--- NOTE | 2018-07-19 10:51 | NUR ---
Dr. Su in to see pt. Dtr. at bedside. Plan of care d/w pt. and dtr. and includes a PEG tube placement for tomorrow, swallow eval tomorrow and dressing changes to start tomorrow.
[2018-07-19] MEDS: morphine 4 MG/ML inj SYRINge IV PRN ×3 (12:06→21:46)
--- NOTE | 2018-07-19 13:12 | NUR ---
Photos taken of open are
--- NOTE | 2018-07-19 13:13 | NUR ---
Photo taken of open area on coccyx.
--- NOTE | 2018-07-19 14:04 | NUR ---
Pt. working with PT. Sitting at side of bed now. VSS.
--- NOTE | 2018-07-19 14:35 | NUR ---
Levophed off now.
--- NOTE | 2018-07-19 18:24 | NUR ---
Problems reprioritized. Patient report given, questions answered & plan of care reviewed with Fernanda BARAJAS.
--- NOTE | 2018-07-19 18:30 | NUR ---
Patient in room ICU 2040. I have received report from Nehal BARAJAS and had the opportunity to ask questions and assume patient care.
[2018-07-19] MEDS: mineral oil/petrolatum ophthal oint EACHEYE SCH ×2 (19:35→19:36)
[2018-07-19] MEDS ORDERED: dextrose 50%-water 50ml dispensing syringe IV PRN (20:05)
[2018-07-19] MEDS ORDERED: glucagon, human recombinant 1mg kit SUBCUT PRN (20:05)
[2018-07-19] MEDS: dextrose 50%-water 50ml dispensing syringe IV PRN (20:35)
[2018-07-19] MEDS ORDERED: albumin (Human) 5% 250ml 250 ML IV ONE ×2 (22:00→22:05)
[2018-07-20] VITALS (21 sets, daily range): BP systolic 92–155; BP diastolic 40–83
[2018-07-20] MEDS: mineral oil/petrolatum ophthal oint EACHEYE SCH ×4 (02:00→20:00)
[2018-07-20] MEDS: piperacillin/tazo 3.375gm/50ml 50 ML IV SCH ×3 (02:15→17:48)
[2018-07-20] MEDS: potassium Cl 20mEq in D5-NS 1,000 ML IV SCH (06:09)
--- NOTE | 2018-07-20 06:18 | NUR ---
Problems reprioritized. Patient report given, questions answered & plan of care reviewed with Nehal BARAJAS.
--- NOTE | 2018-07-20 06:37 | NUR ---
Patient in room ICU 2040. I have received report from Fernanda BARAJAS and had the opportunity to ask questions and assume patient care. Addendum: 07/20/18 at 0638 by Nehal Joyner RN Amended: Links added.
[2018-07-20] MEDS: levoTHYROXINE 25mcg tablet PO SCH (07:00)
[2018-07-20] MEDS: docusate sodium 100mg/10ml UD cup PO SCH ×2 (07:20→20:04)
[2018-07-20] MEDS: lactobacillus rhamnosus 10,000 MMU CELLS/CAPSULE PO SCH ×2 (07:20→20:04)
[2018-07-20] MEDS: heparin, porcine 5000 units/ml vial SQ SCH ×2 (07:24→20:04)
--- NOTE | 2018-07-20 07:39 | NUR ---
PT here working with patient.
[2018-07-20] MEDS: NUT.TX.GLUC.INTOLER,LAC-FR,SOY (GLUCERNA) 237 ML PO SCH ×4 (08:00→17:51)
[2018-07-20] MEDS: morphine 4 MG/ML inj SYRINge IV PRN ×3 (08:01→21:54)
--- NOTE | 2018-07-20 09:35 | NUR ---
Pt. remains sitting in chair without distress. Dtr. at bedside visiting. VSS. Pt. medicated with 2mg Morphine with good results.
--- NOTE | 2018-07-20 13:44 | NUR ---
Reassessment: Pt extubated s/p thoracotomy w/ R elloesser flap per MD note; pending BSS and PEG per MD today. Pt hx prior PEG as well per RN. Previously tolerating tube feeds at goal prior to extubation. LBM 5 w/ routine colace held today given NPO for OR; will likely need additional bowel care post-op. Will monitor for OYSTER HARVESTER recs and nutrition support needs once PEG placed; recs below. Recommendations: 1) once PEG placed; TF per MD using Jevity at 70ml/hr goal; to provide 1680ml fluid, 1361ml freewater, 2016kcals, and 93g protein. Initiate at 20ml/hr and advance 20ml Q8to goal as tolerated. 2) water flush 200ml Q4; monitor Na and need for change in fluid flushes 3) prealbumin Q /, daily wts 4) BSS with OYSTER HARVESTER for diet advancement to regular as medically indicated 5) monitor for signs of refeeding w/ severe malnutrition 6) routine bowel care Addendum: 07/20/18 at [address] Amended: Links added. Addendum: 07/20/18 at [address] F/u: Pt failed BSS and corpak placed per RN w/ TF to resume using Jevity @ 30ml/hr and to advance to prior goal 70ml/hr as tolerated. TF order already active and can be initiated immediately. Reassessment: Pt extubated s/p thoracotomy w/ R elloesser flap per MD note; pending BSS and PEG per MD today. Pt hx prior PEG as well per RN. Previously tolerating tube feeds at goal prior to extubation. LBM 07/15 w/ routine colace held today given NPO for OR; will likely need additional bowel care post-op. Will monitor for OYSTER HARVESTER recs and nutrition support needs once PEG placed; recs below. Recommendations: 1) once PEG placed; for now NGTF per MD using Jevity at 70ml/hr goal; to provide 1680ml fluid, 1361ml free water, 2016kcals, and 93g protein. Initiate at 20ml/hr and advance 20ml Q8to goal as tolerated. 2) water flush 200ml Q4; monitor Na and need for change in fluid flushes 3) prealbumin Q M/, daily wts 4) OYSTER HARVESTER for diet advancement to regular as medically indicated 5) monitor for signs of refeeding w/ severe malnutrition 6) routine bowel care
[2018-07-20] MEDS: dextrose 50%-water 50ml dispensing syringe IV PRN ×2 (13:50→20:28)
--- NOTE | 2018-07-20 13:54 | NUR ---
RN called to obtain dressing change order from Dr. Su. Dr. Su stated he would be by later to change pt's dressing and to teach staff and family how to change dressing.
--- NOTE | 2018-07-20 14:27 | NUR ---
RN unable to obtain a new PIV site as current PIV is working but tends to leak a little. Shruthi BARAJAS attempting to obtain access via ultrasound.
--- NOTE | 2018-07-20 16:09 | NUR ---
Speech therapist here to perform swallow eval for pt.
--- NOTE | 2018-07-20 17:06 | NUR ---
Corpak placement confirmed by Ceferino Royal charge nurse. Awaiting tube feeding from dietary department.
[2018-07-20] MEDS ORDERED: diatr meglu/diatrizoate 30ml oral sol.-(3 dose) bottle NG ONE (22:00)
--- NOTE | 2018-07-20 22:10 | NUR ---
report from JENN Sullivan (ICU transfer); corpak tube feeding started at 1999 at 20ml/hr; water flush due at midnight (pt to be NPO for PEG placement, 07/21) Addendum: 07/21/18 at 0543 by Margarita Mercer RN Amended: Links added.
[2018-07-20] MEDS: dextrose 5%-1/4 normal saline 1,000 ML IV SCH (22:48)
[2018-07-21] VITALS (7 sets, daily range): BP systolic 91–135; BP diastolic 49–64
[2018-07-21] MEDS: mineral oil/petrolatum ophthal oint EACHEYE SCH ×2 (02:00→08:00)
[2018-07-21] MEDS: piperacillin/tazo 3.375gm/50ml 50 ML IV SCH ×3 (02:05→18:00)
[2018-07-21 06:13] LABS: BASOPHILS # (AUTO) 0.1 X10'3 (0-0.2); BASOPHILS % (AUTO) 0.9 % (0-1); EOSINOPHILS # (AUTO) 0.1 X10'3 (0-0.9); EOSINOPHILS % (AUTO) 0.6 % (0-6); HEMOGLOBIN 11.3 g/dl (14.0-17.9); LYMPHOCYTES % (AUTO) 10.8 % (21-51); MEAN CORPUSCULAR HEMOGLOBIN 28.9 PG (27.0-31.0); MEAN CORPUSCULAR HGB CONC 32.2 g/dL (33.0-36.5); MEAN CORPUSCULAR VOLUME 89.7 FL (78-98); MEAN PLATELET VOLUME 8.4 FL (7.4-10.4); MONOCYTES # (AUTO) 0.4 X10'3 (0-0.9); MONOCYTES % (AUTO) 4.6 % (2-12); NEUTROPHILS # (AUTO) 7.3 X10'3 (1.8-7.7); NEUTROPHILS % (AUTO) 83.1 % (42-75); PLATELET COUNT 226 X10'3 (140-440); WHITE BLOOD COUNT 8.8 X10'3 (4.5-11.0)
[2018-07-21 06:20] LABS: ALANINE AMINOTRANSFERASE 8 U/L (12-78); ALBUMIN 1.6 G/DL (3.4-5.0); ALBUMIN/GLOBULIN RATIO 0.3 (1.1-1.5); ALKALINE PHOSPHATASE 62 IU/L (46-116); ANION GAP 2 (8-16); ASPARTATE AMINO TRANSFERASE 22 U/L (10-37); BILIRUBIN,TOTAL 0.3 MG/DL (0.1-1.0); BLOOD UREA NITROGEN 8 MG/DL (7-18); BUN/CREATININE RATIO 14.3 (5.4-32.0); CALCIUM 9.1 MG/DL (8.5-10.1); CHLORIDE 100 MMOL/L (99-107); CREATININE 0.56 MG/DL (0.60-1.10); GLUCOSE 95 MG/DL (70-104); SODIUM 134 MMOL/L (135-145); TOTAL CARBON DIOXIDE 31.8 MMOL/L (24-32); TOTAL PROTEIN 6.5 G/DL (6.4-8.2); eGFR > 90 ML/MIN
[2018-07-21 06:21] LABS: POTASSIUM 3.9 MMOL/L (3.5-5.1)
--- NOTE | 2018-07-21 06:30 | NUR ---
Patient in room [facility]. I have received report from Savita and had the opportunity to ask questions and assume patient care. Addendum: 07/21/18 at 1249 by Chastity Hawley RN Amended: Links added.
--- NOTE | 2018-07-21 06:30 | NUR ---
checked q1hr; slept at intervals & noted to turn from side to side average q2hrs on his own; pt found with o2 NC off & corpak pulled out at 0500; pt states he wasn't aware this happened; 02 sats checked & 93 on room air; pt now coughing up large amounts of thick, trivedi sputum; bed bath completed at 0530; no further changes since admission to floor; shift change report given to JENN Haywood
[2018-07-21] MEDS: levoTHYROXINE 25mcg tablet PO SCH (07:00)
[2018-07-21] MEDS: heparin, porcine 5000 units/ml vial SQ SCH ×2 (07:53→20:00)
--- NOTE | 2018-07-21 09:00 | NUR ---
Dr. Su at bedside, informed the pt's daughter he will return later today to teach her how to perform dressing change when he is discharged. autumn Pelletier RN at bedside as well. Addendum: 07/21/18 at 1253 by Chastity Hawley RN Amended: Links added.
[2018-07-21] MEDS ORDERED: glucagon, human recombinant 1mg kit IV ONE (09:30)
[2018-07-21] MEDS ORDERED: midazolam 2 mg/2 ml injection IV PRN (09:30)
[2018-07-21] MEDS ORDERED: fentaNYL/PF 50MCG/1 ML 2ML syringe IV PRN (09:30)
[2018-07-21] MEDS ORDERED: iohexol 300 MG/1 ML 50ml polymer ONE (09:38)
[2018-07-21] MEDS ORDERED: LIDOcaine 1%/PF 5ML 10 MG/ML VIAL ONE (09:38)
[2018-07-21] MEDS ORDERED: zinc oxide ointment 30gm tube TP PRN (09:40)
--- NOTE | 2018-07-21 09:45 | NUR ---
Pt taken to Ang[facility] for PEG placement. Addendum: 07/21/18 at 1253 by Chastity Hawley RN Amended: Links added.
--- NOTE | 2018-07-21 10:15 | NUR ---
Patient brought from room to IR suite 4 on room air as was in room, patient sats noted to be in 50s with good pleth. Pt placed on NRB at greater than 15LPM with positive response and sats climbed into 90s. Once sats maintained, pt medicated per order for corpak placement. Pt desaturated into high 70s once off o2 for placement attempts and NRB replaced, Pt required significant suctioning of secretions, sats improved after suctioning. After several ttempts to pass corpak under fluroscopy with patient continuing to desaturate, MD Walter requested to halt procedure and reevaluate. Pt still on NRB at this time. MD Walter contacting family. Please see IR report for further details. Patient returned to room and report given to RN at bedside.
[2018-07-21] MEDS ORDERED: fentaNYL/PF 50MCG/1 ML 2ML syringe ONE (10:16)
[2018-07-21] MEDS ORDERED: midazolam 2 mg/2 ml injection ONE (10:16)
[2018-07-21] MEDS: lactobacillus rhamnosus 10,000 MMU CELLS/CAPSULE PO SCH ×2 (10:24→19:48)
[2018-07-21] MEDS: docusate sodium 100mg/10ml UD cup PO SCH ×2 (10:24→19:48)
[2018-07-21] MEDS: NUT.TX.GLUC.INTOLER,LAC-FR,SOY (GLUCERNA) 237 ML PO SCH ×3 (10:24→18:00)
--- NOTE | 2018-07-21 11:00 | NUR ---
Pt returned from Angio , VSS. Addendum: 07/21/18 at 1256 by Chastity Hawley RN Amended: Links added.
[2018-07-21] MEDS: dextrose 5%-1/4 normal saline 1,000 ML IV SCH ×2 (12:03→13:47)
--- NOTE | 2018-07-21 12:43 | NUR ---
Pt does not have a corpak Addendum: 07/21/18 at 1243 by Chastity Hawley RN Amended: Links added.
--- NOTE | 2018-07-21 14:00 | NUR ---
TF Consult: Pt s/p PEG placement w/ continuous TF restarting. TF diet order already active; will monitor for tolerance. Addendum: 07/21/18 at [address] Amended: Links added.
[2018-07-21] MEDS: dextrose 5%-normal saline 1,000 ML IV SCH (16:25)
--- NOTE | 2018-07-21 18:30 | NUR ---
Patient in room [facility]. I have received report from Chastity BARAJAS and had the opportunity to ask questions and assume patient care.
--- NOTE | 2018-07-21 18:33 | NUR ---
Problems reprioritized. Patient report given, questions answered & plan of care reviewed with Michell. Addendum: 07/21/18 at 1834 by Chastity Hawley RN Amended: Links added.
--- NOTE | 2018-07-21 20:06 | NUR ---
Patient refused heperin and SCDs. Patient refused blood glucose check. Education provided regarding increased risk of clots and heart attack and stroke. Education provided on hypoglycemia symptoms. Patient verbalized understanding.
--- NOTE | 2018-07-21 21:13 | NUR ---
RN asked me to evaluate this pt as he has been sounding coarse and has a weak cough. After looking at his orders, I found that he already has active prn tx orders, so I will add him back into our database so we can monitor. Upon my arrival pt is laying in bed, asleep. I called his name a few times and he just shrugged away from me and grunted. Oxygen sats are good and pt is in no distress, has moist but weak cough. Will cont to monitor.
--- NOTE | 2018-07-21 23:27 | NUR ---
Patient continues to refuse an accucheck. States, "Just let me go." I asked go where. Patient states, "go to the other side." I stated if you no longer would like treatment please discuss with family and MD so that we can properly care for him. States, "No I am a pain in the butt." Then patient requested to speak with daughter FRANCIS (Autumn), called and left message to please return call and not urgent but family would like to speak to her. Will continue to monitor patient status.
--- NOTE | 2018-07-21 23:50 | NUR ---
was asked to talk with the pt and evaluate him again by his RN. She states that he has been refusing everything for her and she can't even get him to cough. I gave the pt a flutter and was able to get him to hold it and do 2 breaths through it before he drops it and gives up. Pt has coarse breath sounds on exhalation and a very weak cough. He needs a lot of encouragement but is refusing to participate with much. Will cont to monitor.
[2018-07-22] VITALS (18 sets, daily range): BP systolic 92–123; BP diastolic 50–67
[2018-07-22] MEDS: piperacillin/tazo 3.375gm/50ml 50 ML IV SCH ×3 (02:42→17:51)
[2018-07-22] MEDS: dextrose 50%-water 50ml dispensing syringe IV PRN (02:55)
--- NOTE | 2018-07-22 05:32 | NUR ---
Patient requested that I call his daughter Autumn. Daughter requested that I take paper in to have him write due to his voice being quiet. Requested that I call her back after he write to me. Patient wrote, "girls talk together". Asked if he was talking about Joey and Autumn. He stated yes. Asked him what he wants them to talk about. States, "I want to leave and go on." Asked if it was due to fear of being in hospital longer. Patient stated yes. Asked if it was fear of being stuck in hospital. States yes. Explained that we are trying to place peg tube to increase nutrition and he could go home. Asked if he still has hope for that. Patient states no. Also refused pain medication on multiple occurrences despite daughter and my encouraged R./T him stating soreness everywhere. Daughter informed of above conversation. Daughter states she will be returning 07/23 due to just flying back to [place] 07/21. Sister Joey will be here at 0800 from [employer] today. Daughter Autumn requested paper left at bedside for patient to write what he wants.
--- NOTE | 2018-07-22 06:20 | NUR ---
Problems reprioritized. Patient report given, questions answered & plan of care reviewed with Wendie BARAJAS. Discussed conversation with daughter and patient's continued refusal.
--- NOTE | 2018-07-22 06:25 | NUR ---
Reviewed Matt BARAJAS's assessment, assisted with patient care and critical thinking decisions. Reviewed and agree with charting.
--- NOTE | 2018-07-22 07:04 | NUR ---
Pt refused to have BS check.
[2018-07-22] MEDS: lactobacillus rhamnosus 10,000 MMU CELLS/CAPSULE PO SCH ×3 (08:00→20:00)
[2018-07-22] MEDS: docusate sodium 100mg/10ml UD cup PO SCH ×3 (08:00→20:00)
[2018-07-22] MEDS: NUT.TX.GLUC.INTOLER,LAC-FR,SOY (GLUCERNA) 237 ML PO SCH ×3 (08:00→18:00)
[2018-07-22] MEDS: levoTHYROXINE 25mcg tablet PO SCH (08:05)
[2018-07-22] MEDS: heparin, porcine 5000 units/ml vial SQ SCH ×2 (08:05→19:57)
--- NOTE | 2018-07-22 08:25 | NUR ---
FAMILY IS REQUESTING WARP TYING MACHINE TENDER. PAGED THEM, THEY RESPONDED. SS WILL BE UP SOON
[2018-07-22 08:59] LABS: BASOPHILS % (AUTO) 0.6 % (0-1); EOSINOPHILS # (AUTO) 0.1 X10'3 (0-0.9); EOSINOPHILS % (AUTO) 1.2 % (0-6); HEMATOCRIT 32.4 % (42.0-52.0); HEMOGLOBIN 10.7 g/dl (14.0-17.9); LYMPHOCYTES # (AUTO) 0.9 X10'3 (1.1-4.8); LYMPHOCYTES % (AUTO) 15.4 % (21-51); MEAN CORPUSCULAR HEMOGLOBIN 29.2 PG (27.0-31.0); MEAN CORPUSCULAR HGB CONC 33.1 g/dL (33.0-36.5); MEAN CORPUSCULAR VOLUME 88.2 FL (78-98); MEAN PLATELET VOLUME 8.4 FL (7.4-10.4); MONOCYTES # (AUTO) 0.4 X10'3 (0-0.9); MONOCYTES % (AUTO) 6.5 % (2-12); NEUTROPHILS # (AUTO) 4.5 X10'3 (1.8-7.7); NEUTROPHILS % (AUTO) 76.3 % (42-75); PLATELET COUNT 229 X10'3 (140-440); RED BLOOD COUNT 3.67 X10'6 (4.70-6.10); RED CELL DISTRIBUTION WIDTH 14.7 % (11.5-14.5)
[2018-07-22 09:25] LABS: ALANINE AMINOTRANSFERASE 10 U/L (12-78); ALBUMIN 1.4 G/DL (3.4-5.0); ALBUMIN/GLOBULIN RATIO 0.3 (1.1-1.5); ALKALINE PHOSPHATASE 60 IU/L (46-116); ANION GAP 2 (8-16); ASPARTATE AMINO TRANSFERASE 18 U/L (10-37); BILIRUBIN,TOTAL 0.3 MG/DL (0.1-1.0); BLOOD UREA NITROGEN 10 MG/DL (7-18); BUN/CREATININE RATIO 18.9 (5.4-32.0); CALCIUM 8.2 MG/DL (8.5-10.1); CHLORIDE 97 MMOL/L (99-107); CREATININE 0.53 MG/DL (0.60-1.10); GLUCOSE 78 MG/DL (70-104); POTASSIUM 3.3 MMOL/L (3.5-5.1); SODIUM 134 MMOL/L (135-145); TOTAL CARBON DIOXIDE 35.2 MMOL/L (24-32); eGFR > 90 ML/MIN
[2018-07-22] MEDS: morphine 4 MG/ML inj SYRINge IV PRN ×2 (10:48→20:06)
[2018-07-22] MEDS: dextrose 5%-normal saline 1,000 ML IV SCH ×2 (10:56→20:58)
[2018-07-22 11:43] LABS: PRE OP INR 1.2 INR
[2018-07-22] MEDS ORDERED: BUPIVAcaine/PF 2.5mg/ml (0.25%) 10ml vial ONE (12:36)
[2018-07-22] MEDS ORDERED: sevoflurane 250ml liquid IH ONE (13:02)
[2018-07-22] MEDS ORDERED: fentaNYL/PF 50MCG/1 ML 2ML syringe ONE (13:07)
[2018-07-22] MEDS ORDERED: rocuronium 10mg/ml inj IV ONE (13:09)
[2018-07-22] MEDS ORDERED: propofol inj 20 ML IV ONE (13:09)
[2018-07-22] MEDS ORDERED: ringers solution, lacted 1,000 ML IV SCH (13:53)
[2018-07-22] MEDS ORDERED: meperidine/PF 25mg/ml syringe IV PRN ×3 (13:55)
[2018-07-22] MEDS ORDERED: proCHLORperazine 10 MG/2 ml inj IV PRN (13:55)
[2018-07-22] MEDS ORDERED: morphine 4 MG/ML inj SYRINge IV PRN ×2 (13:55)
[2018-07-22] MEDS ORDERED: ondansetron/PF 4mg/2ml inj IV PRN (13:55)
--- NOTE | 2018-07-22 14:50 | NUR ---
Received from OR via BED, accompanied by Anesthesiologist DR ALLEN-- and report given by Anesthesiolgist. PATIENT WAKING UP, NO S/S OF PAIN, V/S WNL, NEUROVASCULAR CHECKS INTACT,20 G PIV LUE, SCD ON, G TUBE TO GRAVITY BROWN APPROX 10CC IN BAG CDI DRESSING TO ABDOMEN, F/C DRAINING CLEAR YELLOW URINE
--- NOTE | 2018-07-22 15:40 | NUR ---
PATIENT ORIENTED, DENIES PAIN, V/S WNL, NEUROVASCULAR CHECKS INTACT,20 G PIV LUE, SCD ON, G TUBE TO GRAVITY BROWN APPROX 10CC IN BAG CDI DRESSING TO ABDOMEN, F/C DRAINING CLEAR YELLOW URINE. PATIENT TAKEN TO SURGICAL WITH ALL BELONGINGS AND HOOKED UP TO MONITORS IN ROOM AND REPORT GIVEN TO RN WHO HAS TAKEN OVER PATIENT CARE.
--- NOTE | 2018-07-22 15:49 | NUR ---
RECD PT FROM OR
--- NOTE | 2018-07-22 18:05 | NUR ---
Patient in room [facility]. I have received report from Pastora BARAJAS and had the opportunity to ask questions and assume patient care. Patient resting in bed. Denies needs. Will continue to monitor.
--- NOTE | 2018-07-22 18:12 | NUR ---
Problems reprioritized. Patient report given, questions answered & plan of care reviewed with LISETH BARAJAS.
[2018-07-22] MEDS ORDERED: potassium Cl 20 mEq SR tablet PO PRN ×2 (23:50)
[2018-07-22] MEDS ORDERED: magnesium 4gm in 100ml NS 100 ML IV PRN (23:50)
[2018-07-22] MEDS ORDERED: magnesium Cl slow-release 64mg tablet PO PRN (23:50)
[2018-07-22] MEDS ORDERED: potassium Cl 40MEQ/NS 500ml 500 ML IV PRN ×2 (23:50)
[2018-07-23] VITALS: BP 103/53
[2018-07-23] MEDS: morphine 4 MG/ML inj SYRINge IV PRN ×4 (00:45→19:52)
[2018-07-23] MEDS: piperacillin/tazo 3.375gm/50ml 50 ML IV SCH ×3 (02:39→17:29)
[2018-07-23 04:00] VITALS: BP 136/70
--- NOTE | 2018-07-23 06:45 | NUR ---
Problems reprioritized. Patient report given, questions answered & plan of care reviewed with Myra BARAJAS. Patient resting, denies needs, states pain is tolerable.
--- NOTE | 2018-07-23 06:48 | NUR ---
Reviewed and agree with Matt BARAJAS's charting, added additional information along side his assessment. Assisted him with care throughout shift.
--- NOTE | 2018-07-23 06:48 | NUR ---
Patient in room [facility]. I have received report from JENN Lipscomb and had the opportunity to ask questions and assume patient care.
[2018-07-23 07:00] VITALS: BP 105/54
[2018-07-23] MEDS: levoTHYROXINE 25mcg tablet PO SCH (07:00)
[2018-07-23] MEDS: NUT.TX.GLUC.INTOLER,LAC-FR,SOY (GLUCERNA) 237 ML PO SCH ×3 (07:38→18:00)
[2018-07-23] MEDS: docusate sodium 100mg/10ml UD cup PO SCH ×3 (07:38→19:31)
[2018-07-23] MEDS: lactobacillus rhamnosus 10,000 MMU CELLS/CAPSULE PO SCH ×3 (07:38→19:31)
[2018-07-23 08:18] LABS: EOSINOPHILS # (AUTO) 0.1 X10'3 (0-0.9); EOSINOPHILS % (AUTO) 1.3 % (0-6); HEMOGLOBIN 10.1 g/dl (14.0-17.9); LYMPHOCYTES # (AUTO) 0.6 X10'3 (1.1-4.8); LYMPHOCYTES % (AUTO) 12.5 % (21-51); MEAN CORPUSCULAR HEMOGLOBIN 28.7 PG (27.0-31.0); MEAN CORPUSCULAR HGB CONC 32.5 g/dL (33.0-36.5); MEAN CORPUSCULAR VOLUME 88.4 FL (78-98); MEAN PLATELET VOLUME 8.3 FL (7.4-10.4); MONOCYTES # (AUTO) 0.3 X10'3 (0-0.9); MONOCYTES % (AUTO) 5.8 % (2-12); NEUTROPHILS % (AUTO) 79.4 % (42-75); PLATELET COUNT 229 X10'3 (140-440); RED BLOOD COUNT 3.51 X10'6 (4.70-6.10); RED CELL DISTRIBUTION WIDTH 14.8 % (11.5-14.5)
[2018-07-23 08:33] LABS: ALANINE AMINOTRANSFERASE 10 U/L (12-78); ALBUMIN 1.2 G/DL (3.4-5.0); ALBUMIN/GLOBULIN RATIO 0.3 (1.1-1.5); ALKALINE PHOSPHATASE 56 IU/L (46-116); ANION GAP -2 (8-16); ASPARTATE AMINO TRANSFERASE 15 U/L (10-37); BILIRUBIN,TOTAL 0.2 MG/DL (0.1-1.0); BLOOD UREA NITROGEN 7 MG/DL (7-18); CALCIUM 7.5 MG/DL (8.5-10.1); CHLORIDE 102 MMOL/L (99-107); GLUCOSE 78 MG/DL (70-104); MAGNESIUM 1.4 MG/DL (1.5-2.4); PHOSPHORUS 2.7 MG/DL (2.3-4.5); POTASSIUM 3.5 MMOL/L (3.5-5.1); PREALBUMIN 6.3 MG/DL (19-36); SODIUM 136 MMOL/L (135-145); TOTAL CARBON DIOXIDE 35.6 MMOL/L (24-32); TOTAL PROTEIN 5.5 G/DL (6.4-8.2); eGFR > 90 ML/MIN
[2018-07-23] MEDS: heparin, porcine 5000 units/ml vial SQ SCH ×2 (10:24→19:38)
[2018-07-23] MEDS: dextrose 5%-normal saline 1,000 ML IV SCH (10:35)
[2018-07-23 11:57] VITALS: BP 108/55
--- NOTE | 2018-07-23 13:58 | NUR ---
TF consult: Trickle TF per GI surgeon request at 10ml/hr today. Pt previously tolerating TF at 20ml/hr rate. Will monitor for advancement per surgeon approval given already tolerating prior TF. Pt likely to go home on hospice per MD note; currently full code. Recommendations: 1) Trickle PEG TF per surgeon; using Jevity at 10ml/hr goal; to provide 240ml fluid, 194ml free water, 288kcals, and 93g protein. 2) Once OK to advance per MD; PEG feed w/ Jevity at 70ml/hr goal 2) water flush 200ml Q4; monitor Na and need for change in fluid flushes 3) prealbumin Q /, daily wts 4) FLOOR WORKER for diet advancement to regular as medically indicated 5) monitor for signs of refeeding w/ severe malnutrition 6) routine bowel care Addendum: 07/23/18 at [address] Amended: Links added. Addendum: 07/23/18 at [address] TF consult: Trickle TF per GI surgeon request at 10ml/hr today. Pt previously tolerating TF at 20ml/hr rate. Will monitor for advancement per surgeon approval given already tolerating prior TF. Pt likely to go home on hospice per MD note; currently full code. Recommendations: 1) Trickle PEG TF per surgeon; using Jevity at 10ml/hr goal; to provide 240ml fluid, 194ml free water, 288kcals, and 13g protein. 2) Once OK to advance per MD; PEG feed w/ Jevity at 70ml/hr goal 2) water flush 200ml Q4; monitor Na and need for change in fluid flushes 3) prealbumin Q M/, daily wts 4) FLOOR WORKER for diet advancement to regular as medically indicated 5) monitor for signs of refeeding w/ severe malnutrition 6) routine bowel care
[2018-07-23 18:00] VITALS: BP 110/50
--- NOTE | 2018-07-23 18:30 | NUR ---
Patient in room [facility]. I have received report from Myra BARAJAS and had the opportunity to ask questions and assume patient care. Patient in bed, eyes closed, respirations even and nonlabored. Will continue to monitor.
--- NOTE | 2018-07-23 18:30 | NUR ---
Problems reprioritized. Patient report given, questions answered & plan of care reviewed with JENN Lipscomb and JENN Gutierrez.
[2018-07-24] VITALS: BP 116/56
[2018-07-24] MEDS: dextrose 5%-normal saline 1,000 ML IV SCH ×2 (01:10→14:39)
[2018-07-24] MEDS: piperacillin/tazo 3.375gm/50ml 50 ML IV SCH ×2 (01:13→11:09)
[2018-07-24 05:24] LABS: BASOPHILS % (AUTO) 0.7 % (0-1); EOSINOPHILS # (AUTO) 0.1 X10'3 (0-0.9); EOSINOPHILS % (AUTO) 1.3 % (0-6); HEMATOCRIT 29.5 % (42.0-52.0); HEMOGLOBIN 9.8 g/dl (14.0-17.9); LYMPHOCYTES # (AUTO) 0.6 X10'3 (1.1-4.8); LYMPHOCYTES % (AUTO) 10.1 % (21-51); MEAN CORPUSCULAR HEMOGLOBIN 29.1 PG (27.0-31.0); MEAN CORPUSCULAR HGB CONC 33.3 g/dL (33.0-36.5); MEAN CORPUSCULAR VOLUME 87.6 FL (78-98); MEAN PLATELET VOLUME 8.2 FL (7.4-10.4); MONOCYTES # (AUTO) 0.3 X10'3 (0-0.9); MONOCYTES % (AUTO) 5.4 % (2-12); NEUTROPHILS % (AUTO) 82.5 % (42-75); PLATELET COUNT 216 X10'3 (140-440); RED BLOOD COUNT 3.36 X10'6 (4.70-6.10); RED CELL DISTRIBUTION WIDTH 15.1 % (11.5-14.5); WHITE BLOOD COUNT 6.1 X10'3 (4.5-11.0)
--- NOTE | 2018-07-24 05:37 | NUR ---
Reviewed Matt BARAJAS's charting and observed care. Agree with assessment and interventions.
[2018-07-24 05:42] LABS: ALANINE AMINOTRANSFERASE 9 U/L (12-78); ALBUMIN 1.2 G/DL (3.4-5.0); ALBUMIN/GLOBULIN RATIO 0.3 (1.1-1.5); ALKALINE PHOSPHATASE 56 IU/L (46-116); ANION GAP 0 (8-16); ASPARTATE AMINO TRANSFERASE 15 U/L (10-37); BILIRUBIN,TOTAL 0.2 MG/DL (0.1-1.0); BLOOD UREA NITROGEN 5 MG/DL (7-18); BUN/CREATININE RATIO 9.1 (5.4-32.0); CALCIUM 7.5 MG/DL (8.5-10.1); CHLORIDE 100 MMOL/L (99-107); CREATININE 0.55 MG/DL (0.60-1.10); GLUCOSE 97 MG/DL (70-104); MAGNESIUM 2.1 MG/DL (1.5-2.4); PHOSPHORUS 2.2 MG/DL (2.3-4.5); POTASSIUM 3.3 MMOL/L (3.5-5.1); SODIUM 135 MMOL/L (135-145); TOTAL CARBON DIOXIDE 34.7 MMOL/L (24-32); TOTAL PROTEIN 5.3 G/DL (6.4-8.2); eGFR > 90 ML/MIN
--- NOTE | 2018-07-24 06:14 | NUR ---
Problems reprioritized. Patient report given, questions answered & plan of care reviewed with Myra BARAJAS. Patient eyes closed, respirations even.
--- NOTE | 2018-07-24 06:38 | NUR ---
Patient in room [facility]. I have received report from Matt RN and JENN Lipscomb and had the opportunity to ask questions and assume patient care. Patient resting comfortably at this time. Call light and items of frequent use in reach of patient.
[2018-07-24 07:00] VITALS: BP 95/50
[2018-07-24] MEDS ORDERED: LIDOcaine 1% 30ml vial 5 ML in potassium Cl 40MEQ/NS 500ml 500 ML IV ONE (07:15)
[2018-07-24] MEDS: levoTHYROXINE 25mcg tablet PO SCH (08:32)
[2018-07-24] MEDS: heparin, porcine 5000 units/ml vial SQ SCH ×2 (08:33→19:48)
[2018-07-24] MEDS: docusate sodium 100mg/10ml UD cup PO SCH ×2 (08:33→19:47)
[2018-07-24] MEDS: lactobacillus rhamnosus 10,000 MMU CELLS/CAPSULE PO SCH ×2 (08:33→19:48)
[2018-07-24 11:00] VITALS: BP 119/63
[2018-07-24] MEDS: morphine 4 MG/ML inj SYRINge IV PRN ×2 (12:39→17:08)
--- NOTE | 2018-07-24 18:20 | NUR ---
Problems reprioritized. Patient report given, questions answered & plan of care reviewed with JENN Mason.
--- NOTE | 2018-07-24 18:35 | NUR ---
Patient in room [facility]. I have received report from JENN Renteria and had the opportunity to ask questions and assume patient care. Addendum: 07/24/18 at 1835 by Heather Hedrick RN Amended: Links added.
[2018-07-24 20:00] VITALS: BP 133/68
[2018-07-25] VITALS: BP 108/55
[2018-07-25] MEDS: dextrose 5%-normal saline 1,000 ML IV SCH ×2 (03:50→18:15)
--- NOTE | 2018-07-25 06:40 | NUR ---
Problems reprioritized. Patient report given, questions answered & plan of care reviewed with JENN SCOTT.
[2018-07-25 06:41] LABS: BASOPHILS % (AUTO) 0.4 % (0-1); EOSINOPHILS % (AUTO) 0.6 % (0-6); HEMOGLOBIN 9.7 g/dl (14.0-17.9); LYMPHOCYTES # (AUTO) 0.7 X10'3 (1.1-4.8); LYMPHOCYTES % (AUTO) 10.3 % (21-51); MEAN CORPUSCULAR HEMOGLOBIN 28.5 PG (27.0-31.0); MEAN CORPUSCULAR HGB CONC 32.5 g/dL (33.0-36.5); MEAN CORPUSCULAR VOLUME 87.7 FL (78-98); MEAN PLATELET VOLUME 8.4 FL (7.4-10.4); MONOCYTES # (AUTO) 0.4 X10'3 (0-0.9); MONOCYTES % (AUTO) 5.2 % (2-12); NEUTROPHILS # (AUTO) 5.7 X10'3 (1.8-7.7); NEUTROPHILS % (AUTO) 83.5 % (42-75); PLATELET COUNT 224 X10'3 (140-440); RED BLOOD COUNT 3.42 X10'6 (4.70-6.10); RED CELL DISTRIBUTION WIDTH 14.7 % (11.5-14.5); WHITE BLOOD COUNT 6.8 X10'3 (4.5-11.0)
--- NOTE | 2018-07-25 07:00 | NUR ---
Patient in room [facility]. I have received report from Isabella BARAJAS and had the opportunity to ask questions and assume patient care.
[2018-07-25 07:11] LABS: ALANINE AMINOTRANSFERASE 9 U/L (12-78); ALBUMIN 1.3 G/DL (3.4-5.0); ALBUMIN/GLOBULIN RATIO 0.3 (1.1-1.5); ALKALINE PHOSPHATASE 63 IU/L (46-116); ANION GAP 0 (8-16); ASPARTATE AMINO TRANSFERASE 14 U/L (10-37); BILIRUBIN,TOTAL 0.2 MG/DL (0.1-1.0); BLOOD UREA NITROGEN 5 MG/DL (7-18); BUN/CREATININE RATIO 9.3 (5.4-32.0); CALCIUM 8.1 MG/DL (8.5-10.1); CHLORIDE 101 MMOL/L (99-107); CREATININE 0.54 MG/DL (0.60-1.10); GLUCOSE 109 MG/DL (70-104); MAGNESIUM 1.7 MG/DL (1.5-2.4); PHOSPHORUS 2.3 MG/DL (2.3-4.5); POTASSIUM 3.7 MMOL/L (3.5-5.1); SODIUM 135 MMOL/L (135-145); TOTAL CARBON DIOXIDE 34.2 MMOL/L (24-32); TOTAL PROTEIN 5.6 G/DL (6.4-8.2); eGFR > 90 ML/MIN
[2018-07-25 07:36] VITALS: BP 95/44
--- NOTE | 2018-07-25 07:41 | NUR ---
paged regarding low BP of 95/44. Awaiting call back.
[2018-07-25] MEDS: heparin, porcine 5000 units/ml vial SQ SCH ×2 (08:33→19:43)
[2018-07-25] MEDS: docusate sodium 100mg/10ml UD cup PO SCH ×2 (08:33→19:43)
[2018-07-25] MEDS: levoTHYROXINE 25mcg tablet PO SCH (08:33)
[2018-07-25] MEDS: lactobacillus rhamnosus 10,000 MMU CELLS/CAPSULE PO SCH ×2 (08:33→19:43)
[2018-07-25] MEDS: morphine 4 MG/ML inj SYRINge IV PRN (11:02)
[2018-07-25 11:29] VITALS: BP 115/62
--- NOTE | 2018-07-25 14:04 | NUR ---
Informed MD of SaO2- 90% on 3L and that pt desated to 70s when working with PT. Also informed MD of crackles in lungs. No new orders at this time.
--- NOTE | 2018-07-25 18:06 | NUR ---
Problems reprioritized. Patient report given, questions answered & plan of care reviewed with Isabella BARAJAS.
--- NOTE | 2018-07-25 18:08 | NUR ---
Patient in room [facility]. I have received report from JENN SCOTT and had the opportunity to ask questions and assume patient care. Addendum: 07/25/18 at 1809 by Heather Hedrick RN Amended: Links added.
[2018-07-25 20:00] VITALS: BP 120/55
[2018-07-26] VITALS: BP 112/54
[2018-07-26 06:09] LABS: BASOPHILS % (AUTO) 0.3 % (0-1); EOSINOPHILS % (AUTO) 0.4 % (0-6); HEMATOCRIT 29.6 % (42.0-52.0); HEMOGLOBIN 9.7 g/dl (14.0-17.9); LYMPHOCYTES # (AUTO) 1.1 X10'3 (1.1-4.8); LYMPHOCYTES % (AUTO) 12.2 % (21-51); MEAN CORPUSCULAR HEMOGLOBIN 28.9 PG (27.0-31.0); MEAN CORPUSCULAR HGB CONC 32.9 g/dL (33.0-36.5); MEAN PLATELET VOLUME 8.5 FL (7.4-10.4); MONOCYTES # (AUTO) 0.5 X10'3 (0-0.9); MONOCYTES % (AUTO) 5.1 % (2-12); NEUTROPHILS # (AUTO) 7.3 X10'3 (1.8-7.7); PLATELET COUNT 228 X10'3 (140-440); RED BLOOD COUNT 3.36 X10'6 (4.70-6.10); RED CELL DISTRIBUTION WIDTH 14.9 % (11.5-14.5); WHITE BLOOD COUNT 8.9 X10'3 (4.5-11.0)
--- NOTE | 2018-07-26 06:17 | NUR ---
Problems reprioritized. Patient report given, questions answered & plan of care reviewed with JENN SCOTT.
--- NOTE | 2018-07-26 06:20 | NUR ---
Patient in room [facility]. I have received report from Isabella BARAJAS and had the opportunity to ask questions and assume patient care.
[2018-07-26 06:23] LABS: ALANINE AMINOTRANSFERASE 9 U/L (12-78); ALBUMIN 1.3 G/DL (3.4-5.0); ALBUMIN/GLOBULIN RATIO 0.3 (1.1-1.5); ALKALINE PHOSPHATASE 66 IU/L (46-116); ANION GAP -1 (8-16); ASPARTATE AMINO TRANSFERASE 13 U/L (10-37); BILIRUBIN,TOTAL 0.2 MG/DL (0.1-1.0); BLOOD UREA NITROGEN 6 MG/DL (7-18); BUN/CREATININE RATIO 12.2 (5.4-32.0); CALCIUM 7.9 MG/DL (8.5-10.1); CHLORIDE 101 MMOL/L (99-107); CREATININE 0.49 MG/DL (0.60-1.10); GLUCOSE 110 MG/DL (70-104); MAGNESIUM 1.6 MG/DL (1.5-2.4); PHOSPHORUS 2.4 MG/DL (2.3-4.5); POTASSIUM 3.9 MMOL/L (3.5-5.1); SODIUM 135 MMOL/L (135-145); TOTAL CARBON DIOXIDE 35.2 MMOL/L (24-32); TOTAL PROTEIN 5.8 G/DL (6.4-8.2); TROPONIN I < 0.04 NG/ML (0.0-0.05); eGFR > 90 ML/MIN
[2018-07-26 07:27] VITALS: BP 117/53
[2018-07-26] MEDS: dextrose 5%-normal saline 1,000 ML IV SCH ×2 (07:55→22:25)
[2018-07-26] MEDS: heparin, porcine 5000 units/ml vial SQ SCH ×2 (07:55→19:29)
[2018-07-26] MEDS: lactobacillus rhamnosus 10,000 MMU CELLS/CAPSULE PO SCH ×2 (07:55→19:29)
[2018-07-26] MEDS: levoTHYROXINE 25mcg tablet PO SCH (07:55)
[2018-07-26] MEDS: docusate sodium 100mg/10ml UD cup PO SCH ×2 (07:55→19:29)
[2018-07-26] MEDS: albuterol 2.5 MG/3 ML nebule NEB PRN (09:05)
[2018-07-26] MEDS: morphine 4 MG/ML inj SYRINge IV PRN (11:41)
--- NOTE | 2018-07-26 12:00 | NUR ---
reassessment: Pt PEG feeds advancing to RD recommended goal 70ml/hr; currently at 60ml/hr and tolerating w/ no signs of refeeding. RD unable to reach RN regarding new TF order required for new continuous goal rate. Pt also receiving DEX/NS; RD was able to leave message for RN regarding changing to only NS per MD approval w/ Na 135. LBM 07/22 on routine colace. Likely going home on hospice care. Will monitor for new TF consult for new TF diet order w/ goal rate recs. Recommendations: 1) Trickle PEG TF per surgeon; using Jevity at 10ml/hr goal; to provide 240ml fluid, 194ml free water, 288kcals, and 13g protein. 2) Once OK to advance per MD; PEG feed w/ Jevity at 70ml/hr goal 2) water flush 200ml Q4; monitor Na and need for change in fluid flushes 3) prealbumin Q M/, daily wts 4) LOCK PLATER for diet advancement to regular as medically indicated 5) monitor for signs of refeeding w/ severe malnutrition 6) routine bowel care Addendum: 07/26/18 at [address] Amended: Links added.
[2018-07-26 12:47] VITALS: BP 130/61
[2018-07-26 18:00] VITALS: BP 115/51
--- NOTE | 2018-07-26 18:22 | NUR ---
Patient in room [facility]. I have received report from JENN Babb and had the opportunity to ask questions and assume patient care. In no apparent distress, resting comfortably on room air. Call light and items of frequent use within reach. Will continue to monitor.
--- NOTE | 2018-07-26 18:30 | NUR ---
Problems reprioritized. Patient report given, questions answered & plan of care reviewed with Vera BARAJAS.
[2018-07-27] VITALS: BP 103/47
--- NOTE | 2018-07-27 06:17 | NUR ---
Problems reprioritized. Patient report given, questions answered & plan of care reviewed with EJNN Haywood.
[2018-07-27 06:20] LABS: BASOPHILS % (AUTO) 0.3 % (0-1); EOSINOPHILS % (AUTO) 0.4 % (0-6); HEMATOCRIT 31.1 % (42.0-52.0); HEMOGLOBIN 10.3 g/dl (14.0-17.9); LYMPHOCYTES # (AUTO) 1.1 X10'3 (1.1-4.8); LYMPHOCYTES % (AUTO) 10.6 % (21-51); MEAN CORPUSCULAR HEMOGLOBIN 29.1 PG (27.0-31.0); MEAN CORPUSCULAR VOLUME 88.2 FL (78-98); MEAN PLATELET VOLUME 8.1 FL (7.4-10.4); MONOCYTES # (AUTO) 0.5 X10'3 (0-0.9); MONOCYTES % (AUTO) 5.1 % (2-12); NEUTROPHILS # (AUTO) 8.7 X10'3 (1.8-7.7); NEUTROPHILS % (AUTO) 83.6 % (42-75); PLATELET COUNT 235 X10'3 (140-440); RED BLOOD COUNT 3.53 X10'6 (4.70-6.10); RED CELL DISTRIBUTION WIDTH 15.2 % (11.5-14.5); WHITE BLOOD COUNT 10.4 X10'3 (4.5-11.0)
[2018-07-27 06:29] LABS: ALBUMIN 1.3 G/DL (3.4-5.0); ANION GAP -4 (8-16); BILIRUBIN,TOTAL 0.2 MG/DL (0.1-1.0); BLOOD UREA NITROGEN 7 MG/DL (7-18); BUN/CREATININE RATIO 14.9 (5.4-32.0); CALCIUM 8.3 MG/DL (8.5-10.1); CHLORIDE 100 MMOL/L (99-107); CREATININE 0.47 MG/DL (0.60-1.10); GLUCOSE 108 MG/DL (70-104); MAGNESIUM 1.6 MG/DL (1.5-2.4); PHOSPHORUS 2.5 MG/DL (2.3-4.5); POTASSIUM 3.9 MMOL/L (3.5-5.1); SODIUM 133 MMOL/L (135-145); TOTAL CARBON DIOXIDE 37.3 MMOL/L (24-32); TOTAL PROTEIN 6.2 G/DL (6.4-8.2); eGFR > 90 ML/MIN
[2018-07-27 06:30] LABS: ALANINE AMINOTRANSFERASE 7 U/L (12-78); ALBUMIN/GLOBULIN RATIO 0.3 (1.1-1.5); ALKALINE PHOSPHATASE 68 IU/L (46-116); ASPARTATE AMINO TRANSFERASE 15 U/L (10-37); PREALBUMIN 6.2 MG/DL (19-36)
--- NOTE | 2018-07-27 06:30 | NUR ---
Patient in room [facility]. I have received report from Deisi and had the opportunity to ask questions and assume patient care. Addendum: 07/27/18 at 1159 by Chastity Hawley RN Amended: Links added.
[2018-07-27 07:00] VITALS: BP 114/51
[2018-07-27] MEDS: levoTHYROXINE 25mcg tablet PO SCH (07:27)
[2018-07-27] MEDS: docusate sodium 100mg/10ml UD cup PO SCH ×2 (07:27→21:05)
[2018-07-27] MEDS: lactobacillus rhamnosus 10,000 MMU CELLS/CAPSULE PO SCH ×2 (07:27→21:06)
[2018-07-27] MEDS: heparin, porcine 5000 units/ml vial SQ SCH ×2 (07:27→21:06)
[2018-07-27] MEDS: morphine 4 MG/ML inj SYRINge IV PRN ×2 (09:57→16:15)
[2018-07-27] MEDS: dextrose 5%-normal saline 1,000 ML IV SCH (16:11)
--- NOTE | 2018-07-27 18:29 | NUR ---
Problems reprioritized. Patient report given, questions answered & plan of care reviewed with Dionne. Addendum: 07/27/18 at 1830 by Chastity Hawley RN Amended: Links added.
[2018-07-27 20:00] VITALS: BP 119/65
--- NOTE | 2018-07-27 23:31 | NUR ---
Patient in room [facility]. I have received report from JENN Haywood and had the opportunity to ask questions and assume patient care. Addendum: 07/27/18 at 2332 by Dionne Kimble RN Amended: Links added.
[2018-07-28 00:11] VITALS: BP 157/58
[2018-07-28] MEDS: dextrose 5%-normal saline 1,000 ML IV SCH (05:43)
[2018-07-28 06:17] LABS: ALANINE AMINOTRANSFERASE 7 U/L (12-78); ALBUMIN 1.2 G/DL (3.4-5.0); ALBUMIN/GLOBULIN RATIO 0.2 (1.1-1.5); ANION GAP -1 (8-16); ASPARTATE AMINO TRANSFERASE 16 U/L (10-37); BILIRUBIN,TOTAL 0.2 MG/DL (0.1-1.0); BLOOD UREA NITROGEN 9 MG/DL (7-18); CALCIUM 8.1 MG/DL (8.5-10.1); CHLORIDE 97 MMOL/L (99-107); CREATININE 0.45 MG/DL (0.60-1.10); GLUCOSE 113 MG/DL (70-104); POTASSIUM 3.8 MMOL/L (3.5-5.1); SODIUM 133 MMOL/L (135-145); TOTAL CARBON DIOXIDE 37.4 MMOL/L (24-32); TOTAL PROTEIN 6.1 G/DL (6.4-8.2); eGFR > 90 ML/MIN
[2018-07-28 06:18] LABS: ALKALINE PHOSPHATASE 65 IU/L (46-116)
--- NOTE | 2018-07-28 06:20 | NUR ---
Patient in room [facility]. I have received report from JENN Truong and had the opportunity to ask questions and assume patient care.
--- NOTE | 2018-07-28 06:25 | NUR ---
Problems reprioritized. Patient report given, questions answered & plan of care reviewed with JENN Grace. Addendum: 07/28/18 at 0625 by Dionne Kimble RN Amended: Links added.
[2018-07-28 07:30] VITALS: BP 104/52
[2018-07-28] MEDS: docusate sodium 100mg/10ml UD cup PO SCH (08:00)
[2018-07-28] MEDS: levoTHYROXINE 25mcg tablet PO SCH (08:45)
[2018-07-28] MEDS: lactobacillus rhamnosus 10,000 MMU CELLS/CAPSULE PO SCH (08:45)
[2018-07-28] MEDS: heparin, porcine 5000 units/ml vial SQ SCH (08:47)
[2018-07-28 11:30] VITALS: BP 102/49
--- NOTE | 2018-07-28 16:30 | NUR ---
Patient discharged. PIV's removed by break RN Myra. Education given to patient and daughter and they verbalized understanding. Daughter Neela had extensive education regarding the g-tube and how to give bolus feeds, check residuals, and give free-water. Eric's RN also came and gave her more education regarding the tube feeds. [facility] hospice will be at the house when the patient arrives to help get him settled. Neela was also educated regarding wound care/dressing changes. She felt very comfortable with the dressing changes. JENN Renteria changed the dressing at discharge and reiterated the steps. I also told her that the hospice nurses will also be there to help with tube feeds and dressing care and you can call them for help anytime if you have questions. Patient was wheeled down and helped into the car by staff.
== END 2018-07-28 16:30 | disposition hospice, home (50) | DRG 166 ==
LOC: ER 23:14 → SUR 3N 07-10 05:39 → ICU 2S 07-18 16:12 → SUR 3N 07-20 23:10
PROVIDERS: ADMIT Internal Medicine; ATTEND Family Medicine
PROC: 0W9930Z Drainage of Right Pleural Cavity with Drainage Device, Percutaneous Approach (ICD-10-PCS; principal; 2018-07-11)
PROC: 3E0L3GC Introduction of Other Therapeutic Substance into Pleural Cavity, Percutaneous Approach (ICD-10-PCS; 2018-07-11)
PROC: 0PB10ZZ Excision of 1 to 2 Ribs, Open Approach (ICD-10-PCS; 2018-07-18)
PROC: 0DH63UZ Insertion of Feeding Device into Stomach, Percutaneous Approach (ICD-10-PCS; 2018-07-22)
DX: J86.9 Pyothorax without fistula (principal); J96.20 Acute and chronic respiratory failure, unspecified whether with hypoxia or hypercapnia; E43 Unspecified severe protein-calorie malnutrition; J96.90 Respiratory failure, unspecified, unspecified whether with hypoxia or hypercapnia; J90 Pleural effusion, not elsewhere classified; R64 Cachexia; Z68.1 Body mass index [BMI] 19.9 or less, adult; Z66 Do not resuscitate; E87.6 Hypokalemia; J43.9 Emphysema, unspecified; K21.9 Gastro-esophageal reflux disease without esophagitis; Z72.0 Tobacco use; Z85.819 Personal history of malignant neoplasm of unspecified site of lip, oral cavity, and pharynx; Z92.21 Personal history of antineoplastic chemotherapy; Z92.3 Personal history of irradiation
CPT/HCPCS: 32550; 36415; 36600; 49440; 71045; 71250; 74018; 75989; 80053; 80202; 81001; 82803; 82945; 82948; 83605; 83615; 83735; 83880; 83986; 84100; 84132; 84134; 84145; 84157; 84484; 85018; 85025; 85610; 85730; 87040; 87070; 87075; 87077; 87102; 87176; 88108; 88305; 89051; 92508; 92616; 93005; 94002; 94003; 94640; 94667; 94760; 96365; 96368; 97110; 97116; 97161; 97162; 97530; 99285; A6251; A6253; A6446; A6449; A7000; B4087; G0378; J0690; J1580; J1644; J2001; J2250; J2270; J2543; J2704; J2997; J3010; J3370; J3475; J3480; J3490; J7040; J7042; J7120; P9045; Q9963; Q9967; X5958